=== PATIENT | female | born 1945 ===

== ENCOUNTER 2020-10-10 09:32 | Inpatient (IN) | payer MEDICARE, OTHER ==
[~2020-10-10] VITALS: Ht 162.6 cm; Wt 33.6 kg
[2020-10-10] MEDS ORDERED: LISI10TA16 PO (10:52)
[2020-10-10] MEDS ORDERED: BIMA2.5D EACHEYE (10:52)
[2020-10-10] MEDS ORDERED: SERT50TA PO (10:52)
[2020-10-10] MEDS ORDERED: DICL20GE TP (10:52)
[2020-10-10] MEDS ORDERED: DULO60CA6 PO (10:52)
[2020-10-10] MEDS ORDERED: SIMV20TA PO (10:52)
[2020-10-10] MEDS ORDERED: OMEP20TA63 PO (10:52)
[2020-10-10] MEDS ORDERED: NAPR-683 PO (10:52)
[2020-10-10] MEDS ORDERED: DIAZ2TAB PO (10:52)
[2020-10-10] MEDS ORDERED: SENN8.8S13 PO (10:52)
[2020-10-10] MEDS ORDERED: BRIM5DRO2 EACHEYE (10:52)
[2020-10-10] MEDS ORDERED: CALC11776 PO (10:52)
[2020-10-10] MEDS ORDERED: HYDR12.58 PO (10:52)
[2020-10-10] MEDS ORDERED: MIRT-37 PO (10:52)
[2020-10-10] MEDS ORDERED: DOCU-109 PO (10:52)
[2020-10-10] MEDS ORDERED: LEVO50TA5 PO (10:55)
[2020-10-10 13:10] VITALS: BP 156/89
[2020-10-10] MEDS ORDERED: CALCIUM CARBONATE 470 MG PO PRN (14:30)
[2020-10-10] MEDS ORDERED: NON FORMULARY ITEM (Omeprazole Magnesium (Prilosec Otc) 1 TAB) PO PRN (14:30)
[2020-10-10] MEDS ORDERED: diazePAM 2 MG TABLET. PO PRN (14:30)
[2020-10-10] MEDS ORDERED: SENN25TA PO (14:30)
[2020-10-10] MEDS ORDERED: MAG HYDROX/AL HYDROX/SIMETH 30 ML ORAL.SUSP PO PRN (14:45)
[2020-10-10] MEDS ORDERED: ACETAMINOPHEN 325 MG TABLET PO PRN (14:45)
[2020-10-10] MEDS ORDERED: MAGNESIUM HYDROXIDE 2,400 MG/30 ML ORAL.SUSP. PO PRN (14:45)
[2020-10-10] MEDS ORDERED: METHYL SALICYLATE/MENTHOL TOPICAL OINTMENT 57GM TUBE. TP PRN (14:45)
[2020-10-10] MEDS ORDERED: CALCIUM CARBONATE 500 MG TAB.CHEW PO PRN (15:00)
[2020-10-10] MEDS ORDERED: PANTOPRAZOLE 40 MG TABLET. PO PRN (15:00)
--- NOTE | 2020-10-10 15:05 | NUR ---
Admission Note with Justification for Admission to [facility] Patient admitted to [facility] for protective oversight for emergency stabilization of acute psychiatric crisis. Pt admitted from: Home Mode of arrival: POV Accompanied By: Family Precipitating behaviors that initiated intake and admission: anxiety, depression, poor oral intake/weight loss, hopeless Description of failure of out patient attempts at stabilization in previous setting list behavior and medication trials: out patient psychiatry, medications Behaviors and assessment findings upon admission: anxious, cooperative, withdrawn, Plan: Admit for protective oversight for adjustment and stabilization of medications, behaviors and mood. Intense treatment regimen including groups, medication adjustments, therapy, consistent regimen for ADL's, self care, and sleep hygiene. Daily monitoring by Inpatient staff, Psychiatry, and Medical Physician. admitted to room 218 at 1315 accomp by her daughter who dropped her off. oriented to room, unit and routines.
--- NOTE | 2020-10-10 15:33 | NUR ---
Patient has been provided with Practical Counseling for tobacco cessation. It included a face to face interaction and the following was discussed: Recognizing danger situations, Developing coping skills,Basic cessation information. Will follow for discharge needs and discharge planning.
[2020-10-10 15:37] VITALS: BP 101/64
[2020-10-10 16:39] LABS: BASO % 1 % (0-3); EOS # 0.2 x10^3/uL (0.0-0.7); EOS % 4 % (0-3); HEMATOCRIT 44.7 % (36.0-47.0); HEMOGLOBIN 15.1 g/dL (12.0-15.5); LYMPH # 0.7 x10^3/uL (1.0-4.8); LYMPH % 14 % (24-48); MEAN CORPUSCULAR HEMOGLOBIN 33 pg (25-35); MEAN CORPUSCULAR HGB CONC 34 g/dL (31-37); MEAN CORPUSCULAR VOLUME 98 fL (79-100); MONO # 0.5 x10^3/uL (0.0-1.1); MONO % 10 % (0-9); NEUT # 3.7 x10^3uL (1.8-7.7); NEUT % 72 % (31-73); PLATELET COUNT 176 x10^3/uL (140-400); RED BLOOD COUNT 4.55 x10^6/uL (3.50-5.40); RED CELL DISTRIBUTION WIDTH 13.5 % (11.5-14.5); WHITE BLOOD COUNT 5.2 x10^3/uL (4.0-11.0)
[2020-10-10 16:48] LABS: ALBUMIN/GLOBULIN RATIO 0.9 (1.0-1.7); CALCIUM 8.2 mg/dL (8.5-10.1); CREATININE 0.6 mg/dL (0.6-1.0); GFR 96.9; POTASSIUM 3.4 mmol/L (3.5-5.1); TOTAL BILIRUBIN 0.3 mg/dL (0.2-1.0); TOTAL PROTEIN 6.3 g/dL (6.4-8.2)
[2020-10-10] MEDS: BRIMONIDINE 0.2% OPHTH SOLUTION 5ML BOTTLE. OU SCH (20:46)
[2020-10-10] MEDS: LATANOPROST 0.005% OPHTH SOLUTION 2.5ML BOTTLE. OU SCH (20:47)
[2020-10-10] MEDS: TIMOLOL 0.5% OPHTH SOLUTION 5ML BOTTLE. OU SCH (20:47)
[2020-10-10] MEDS: MIRTAZAPINE 15 MG TABLET PO SCH (20:47)
[2020-10-10] MEDS ORDERED: BRIMONIDINE TARTRATE EACHEYE SCH (21:00)
[2020-10-10] MEDS ORDERED: SIMVASTATIN 20 MG TABLET PO SCH (21:00)
[2020-10-10] MEDS ORDERED: TIMOLOL EACHEYE SCH (21:00)
--- NOTE | 2020-10-10 22:03 | PDOC ---
Exam Note: Nathan Note: Please also refer to the separate dictated note~for this date of service dictated separately.~Patient seen individually. Discussed the patient with Nursing staff reviewed the chart.~Reviewed interim history and current functioning. Reviewed vital signs,~Labs/ Radiology~and current medications noted below. Continue current treatment with the changes noted in the dictated addendum note Assessment: Vital Signs/I&O: Vital Signs Date Time Temp Pulse Resp B/P (MAP) Pulse Ox O2 Delivery O2 Flow Rate FiO2 10/10/20 15:37 97.9 82 16 101/64 (76) 90 Labs: Laboratory Tests Test 10/10/20 16:19 White Blood Count 5.2 x10^3/uL (4.0-11.0) Red Blood Count 4.55 x10^6/uL (3.50-5.40) Hemoglobin 15.1 g/dL (12.0-15.5) Hematocrit 44.7 % (36.0-47.0) Mean Corpuscular Volume 98 fL (79-100) Mean Corpuscular Hemoglobin 33 pg (25-35) Mean Corpuscular Hemoglobin Concent 34 g/dL (31-37) Red Cell Distribution Width 13.5 % (11.5-14.5) Platelet Count 176 x10^3/uL (140-400) Neutrophils (%) (Auto) 72 % (31-73) Lymphocytes (%) (Auto) 14 % (24-48) L Monocytes (%) (Auto) 10 % (0-9) H Eosinophils (%) (Auto) 4 % (0-3) H Basophils (%) (Auto) 1 % (0-3) Neutrophils # (Auto) 3.7 x10^3uL (1.8-7.7) Lymphocytes # (Auto) 0.7 x10^3/uL (1.0-4.8) L Monocytes # (Auto) 0.5 x10^3/uL (0.0-1.1) Eosinophils # (Auto) 0.2 x10^3/uL (0.0-0.7) Basophils # (Auto) 0.0 x10^3/uL (0.0-0.2) D-Dimer (Shira) 0.33 mg/L (0.00-0.50) Sodium Level 141 mmol/L (136-145) Potassium Level 3.4 mmol/L (3.5-5.1) L Chloride Level 100 mmol/L (98-107) Carbon Dioxide Level 39 mmol/L (21-32) H Anion Gap 2 (6-14) L Blood Urea Nitrogen 18 mg/dL (7-20) Creatinine 0.6 mg/dL (0.6-1.0) Estimated GFR (Cockcroft-Gault) 96.9 BUN/Creatinine Ratio 30 (6-20) H Glucose Level 222 mg/dL (70-99) H Calcium Level 8.2 mg/dL (8.5-10.1) L Magnesium Level 2.0 mg/dL (1.8-2.4) Total Bilirubin 0.3 mg/dL (0.2-1.0) Aspartate Amino Transferase (AST) 22 U/L (15-37) Alanine Aminotransferase (ALT) 31 U/L (14-59) Alkaline Phosphatase 85 U/L (46-116) Total Protein 6.3 g/dL (6.4-8.2) L Albumin 3.0 g/dL (3.4-5.0) L Albumin/Globulin Ratio 0.9 (1.0-1.7) L Current Medications: Meds: Current Medications Medications (Trade) Dose Ordered Sig/Bebe Route PRN Reason Start Time Stop Time Status Last Admin Dose Admin Mirtazapine (Remeron) 15 mg QHS PO 10/10/20 21:00 10/10/20 20:47 Simvastatin (Zocor) 20 mg QHS PO 10/10/20 21:00 10/10/20 20:47 I have reviewed the current psychotropics carefully including drug interactions. Risk benefit ratio favors no change other than as noted in my dictated progress note. Diagnosis: Problems: (1) MDD (major depressive disorder) CHRISTOPHE SALAS MD Oct 10, 2020 22:03
[2020-10-10 22:38] LABS: BILIRUBIN,URINE NEG (NEG); CLARITY,URINE HAZY; COLOR,URINE YELLOW; GLUCOSE,URINE NEG (NEG)
[2020-10-10 22:39] LABS: BACTERIA,URINE FEW /HPF (0-FEW); NITRITE,URINE NEG (NEG); SQUAMOUS EPITHELIAL CELL,UR FEW /LPF; UROBILINOGEN,URINE 0.2 mg/dL (0.2 mg/dL); WBC,URINE 0 /HPF (0-4)
--- NOTE | 2020-10-10 23:02 | NUR ---
Pt located in the hallway by the [facility] sitting calmly crocheting. Pt A/O x4. Pt denies anxiety at this time. Pt states she is not depressed, just "really tired." Pt compliant with whole medications and ate ice cream for an evening snack.
[2020-10-11] MEDS: LEVOTHYROXINE 50 MCG TABLET PO SCH ×2 (05:32→07:30)
[2020-10-11 06:08] VITALS: BP 125/78
[2020-10-11] MEDS ORDERED: LEVOTHYROXINE 50 MCG TABLET PO SCH (07:30)
[2020-10-11] MEDS: DULoxetine HCL 60 MG CAPSULE.DR PO SCH (08:46)
[2020-10-11] MEDS ORDERED: LISINOPRIL 10 MG TABLET PO SCH (09:00)
[2020-10-11] MEDS ORDERED: NON FORMULARY ITEM (Hydrochlorothiazide (Hydrochlorothiazide Tablet) 12.5 MG) PO SCH (09:00)
[2020-10-11] MEDS ORDERED: SERTRALINE 50 MG TABLET. PO SCH (09:00)
[2020-10-11] MEDS ORDERED: hydroCHLOROthiazide 12.5 MG CAPSULE PO SCH (09:00)
[2020-10-11] MEDS: TIMOLOL 0.5% OPHTH SOLUTION 5ML BOTTLE. OU SCH ×2 (09:00→20:31)
[2020-10-11] MEDS: BRIMONIDINE 0.2% OPHTH SOLUTION 5ML BOTTLE. OU SCH ×2 (09:13→20:31)
--- NOTE | 2020-10-11 11:26 | CONS ---
DATE OF CONSULTATION: 10/11/2020 ATTENDING PHYSICIAN: Dr. Salas. We are asked to see the patient for medical consultation. HISTORY OF PRESENT ILLNESS: The patient is a 75-year-old female from [place], [place]. She did a self-check in, and she is fairly alert. Her concern is a significant weight loss down to 82 pounds. She states that since she has been on her antidepressant medication, her appetite has been quite poor and she is not eating as much. I did review her medications. She is not on any nonsteroidal agents. She states that she was never heavy. She had weighed somewhere above 100 pounds. She is down to 82 pounds. She denied any chest pain, palpitations, diarrhea. I did review her medicines. ALLERGIES: SHE HAS ALLERGIES TO PENICILLIN, CEPHALEXIN. EXACT REACTION IS UNCLEAR. MEDICATIONS: Currently, she is taking Lumigan eyedrops, timolol eyedrops, calcium carbonate, Valium p.r.n., Cymbalta, hydrochlorothiazide, Synthroid, lisinopril, Remeron, omeprazole, senna, Zoloft, and Zocor. SOCIAL HISTORY: She is a nonsmoker and nondrinker. PAST MEDICAL HISTORY: Significant for essential hypertension, major depression with anxiety, hyperlipidemia and gastroesophageal reflux disease along with osteoporosis. FAMILY HISTORY: Noncontributory. REVIEW OF SYSTEMS: The patient is . Her 9 years ago. She has had depression. She has a daughter that lives in [place]. She denied any nausea, vomiting or diarrhea, just simply no appetite. She was born in [place] originally, she met her , the [employer] stationed there, they moved here. She is a naturalized citizen. All other systems reviewed and turned to be negative. PHYSICAL EXAMINATION: GENERAL: When I saw her, this is a very pleasant female who is thin and cachectic. VITAL SIGNS: Initial vital signs showed a blood pressure of 125/78, pulse is 80 and regular. She was afebrile, oxygen saturation 92% on room air. HEENT: Head is without trauma. Pupils are reactive. Sclerae nonicteric. Oropharynx clear. NECK: Supple, no bruits. LUNGS: Otherwise clear. CARDIOVASCULAR: Regular heart tones. No gallop. ABDOMEN: Soft. No guarding. EXTREMITIES: Without edema. NEUROLOGIC: Focally intact. Speech is fluent. SKIN: Warm and dry. PERTINENT LABORATORY STUDIES: Her hemoglobin is 15.1 g/dL, white count 5200. Sodium 141 mEq, potassium 3.4. Nonfasting blood sugar was 222. Her urinalysis was clean and free of glucose. Serology for coronavirus is negative. ASSESSMENT: 1. This 75-year-old female checked herself in with cachexia. 2. Decreased appetite related to medications. 3. Hypertension, currently normotensive. 4. Degenerative arthritis. 5. Anxiety that is significant and associated with her depression. RECOMMENDATIONS: 1. I have reviewed her medicine. We ought to simplify. She does not need her hydrochlorothiazide. I will take the liberty of stopping this. In addition, I see that she had been on 2 SSRIs. Whether or not she was taking both at the same time or subsequently is unclear. She does not have any indication. Therefore, I would recommend that we stop the Zoloft and continue the Cymbalta. She may have hyperserotonin syndrome. 2. Simplification of her meds. I will stop her calcium and other p.r.n. meds that are not necessary. I do not think she needs a senna either. In addition, cholesterol is not a problem. I will hold her Zocor and I will also take the liberty of stopping her lisinopril and see if her blood pressure is active. I do not think she needs that right now. Thank you again for asking me to see this patient for medical consultation. I should gladly follow along closely during her inpatient care. In addition, I do not know whether the admission blood sugar was accurate. I would recommend getting a hemoglobin A1c to make sure she does not have diabetes. MARTHA/ELLY/DEVAUGHN DR: Moriah TID: [id number] CC: CHRISTOPHE SALAS MD
[2020-10-11] MEDS: NICOTINE 21MG PATCH. TD SCH (11:30)
[2020-10-11 11:41] LABS: THYROID STIM HORMONE (TSH) 1.037 uIU/mL (0.358-3.740)
--- NOTE | 2020-10-11 11:45 | RAD ---
CT HEAD/BRAIN WO Date: 10/11/2020 10:14 AM Clinical Indication: change in mental status / Spl. Instructions: / History: Comparison: None. Technique: 5 mm axial tomographic images were obtained of the head without contrast. These were view ed on brain and bone windows. One or more of the following dose reduction techniques were utilized: A utomated exposure control (AEC), Adjustment of mA and/or kV according to patient size, Use of iterati ve reconstruction technique such as ASiR, CT scan done according to ALARA and image gently/image ying ly Findings: Mild generalized cerebral and cerebellar volume loss. Mild nonspecific periventricular hypoattenuatio n, most commonly seen with chronic small vessel ischemic disease. Calcified atherosclerosis of the bi lateral cavernous and paraclinoid internal carotid arteries and intracranial vertebral arteries. No intra- or extra-axial mass or fluid collection. No acute hemorrhage. The ventricles are normal in size, shape, and morphology. The fermin-white matter junction is normal. The subarachnoid cisterns are patent. The visualized paranasal sinuses are normal. The visualized portions of the orbits and globes are no rmal. The mastoid air cells are clear. The furniture painter topogram shows no lytic lesion or fracture. Impression: No acute intracranial process. Mild cerebral volume loss. Mild chronic small vessel ischemic disease. Electronically signed by: Stone Marrero MD (10/11/2020 11:42 AM) [id number]
--- NOTE | 2020-10-11 14:22 | NUR ---
Nursing note: Patient in hallway for morning medication & assessment, meds taken whole. She is A/O X4, denies anxiety at this time. Patient stated she is here for anxiety, depression, & loss of appetite. She refused her nicotine patch, voiced she is doing good. Patient is currently in her room resting. Will continue to monitor.
[2020-10-11 15:57] VITALS: BP 111/69
--- NOTE | 2020-10-11 19:37 | HP ---
ADMIT DATE: 10/10/2020 PSYCHIATRIC ADMISSION HISTORY/EVALUATION This is a late entry, date of service on 10/10/2020, covers the elements not covered in my initial note on 10/10/2020. IDENTIFYING DATA: The patient is a 75-year-old female referred by Dr. Levine, her psychiatrist and Dr. El at [facility] in [place], [place] on account of worsening symptoms of depression, poor oral intake with weight dropping down to 82 pounds. Reportedly, she has told her family that she plans to starve herself. She has had increasing anxiety, nervous all the time, feeling hopeless, helpless, worthless and has failed outpatient psychiatric interventions with Dr. Levine. Dr. Levine is currently deployed overseas. Dr Smith initiated the referral to us. CHIEF COMPLAINT: "I don't feel hungry. I am anxious all the time. I am depressed." HISTORY OF PRESENT ILLNESS: The patient has a history of prolonged duration of major depressive disorder and anxiety disorder. She is unsure what part this started in the first place and there is no family history either. She admits to feeling hopeless, helpless, worthless, drop in appetite, weight loss as noted. Suicidal ideation, which she minimizes at this time. No clear psychotic symptoms or homicidal ideation. PAST PSYCHIATRIC HISTORY: As above. MEDICAL HISTORY: Hypothyroidism, hyperlipidemia, GERD, hypertension, chronic constipation, emphysema, osteoporosis, insomnia, status post cataract surgery and tonsillectomy. ALLERGIES: PENICILLIN AND KEFLEX. DIET: Regular. ACCU-CHEKS: None. CODE STATUS: Full code. Takes medications whole, ambulates up ad [place]. CURRENT PSYCHOTROPICS: Remeron 15 mg at bedtime, Zoloft 150 mg a day, Cymbalta 60 mg a day, Valium 2 mg q. 12 hours p.r.n. anxiety, which she does not take this because of tiredness, even though it helped her anxiety significantly. FAMILY HISTORY: Noncontributory. SOCIAL HISTORY: No alcohol, drug abuse, physical, sexual or elder abuse history is noted. She is not known to be a perpetrator. She used to work at the [employer] and [employer] in the past and is originally from [place]. She is a smoker. The patient states she has been unable to go to the grocery store due to anxiety and her family assist with this, it is that if someone with her, she is __ able to get into the store, but not otherwise. REACTION TO HOSPITALIZATION: The patient accepting of it. ASSETS: Supportive family, stable living at home with family support. REVIEW OF SYSTEMS: Poor appetite. No CV, , pulmonary, eye system symptoms on review. MENTAL STATUS EXAM: The patient is reasonably oriented. Speech is coherent. Abstraction fair. Computation impaired. Language function intact. Attention span short. Mood and affect withdrawn, depressed, quite anxious, verbal. She denies current suicidal or homicidal ideation. Fairly attentive. IMPRESSION: Major depressive disorder, recurrent, anxiety disorder, unspecified. Rest as above. PLAN: Admit to geropsychiatry unit at [facility]. I will see the patient daily individually from a psychiatric standpoint, medical followup with Dr. Isaacs/Dr. Tsai. Continue the patient on her current psychotropics. Check CT head if not done recently. Continue current psychotropics. Consider stopping the Zoloft since she is on Cymbalta. Consider augmentation with Abilify post baseline assessment. We will make further determination post baseline assessment. ESTIMATED LENGTH OF STAY: 10-12 days. DISPOSITION PLANS: Discharge back home with outpatient followup post-stabilization. GUMARO DR: Sue TID: [id number]
[2020-10-11] MEDS: MIRTAZAPINE 15 MG TABLET PO SCH (20:31)
[2020-10-11] MEDS: LATANOPROST 0.005% OPHTH SOLUTION 2.5ML BOTTLE. OU SCH (20:31)
--- NOTE | 2020-10-11 22:21 | PDOC ---
Exam Note: Nathan Note: Please also refer to the separate dictated note~for this date of service dictated separately.~Patient seen individually. Discussed the patient with Nursing staff reviewed the chart.~Reviewed interim history and current functioning. Reviewed vital signs,~Labs/ Radiology~and current medications noted below. Continue current treatment with the changes noted in the dictated addendum note Assessment: Vital Signs/I&O: Vital Signs Date Time Temp Pulse Resp B/P (MAP) Pulse Ox O2 Delivery O2 Flow Rate FiO2 10/11/20 15:57 97.3 92 18 111/69 (83) 93 I & O 10/10/20 10/10/20 10/11/20 15:00 23:00 07:00 Intake Total 60 ml 60 ml Balance 60 ml 60 ml Current Medications: Meds: Current Medications Medications (Trade) Dose Ordered Sig/Bebe Route PRN Reason Start Time Stop Time Status Last Admin Dose Admin Diazepam (Valium) 2 mg BID PRN PO ANXIETY 10/10/20 14:30 Duloxetine HCl (Cymbalta) 60 mg DAILY PO 10/11/20 09:00 10/11/20 08:46 Levothyroxine Sodium (Synthroid) 50 mcg DAILYAC PO 10/11/20 07:30 10/10/20 20:48 DC Lisinopril (Prinivil) 10 mg DAILY PO 10/11/20 09:00 10/11/20 08:47 DC Mirtazapine (Remeron) 15 mg QHS PO 10/10/20 21:00 10/11/20 20:31 Sertraline HCl (Zoloft) 150 mg DAILY PO 10/11/20 09:00 10/11/20 08:47 DC Simvastatin (Zocor) 20 mg QHS PO 10/10/20 21:00 10/11/20 08:47 DC 10/10/20 20:47 Latanoprost (Xalatan) 1 drop QHS OU 10/10/20 21:00 10/11/20 20:31 Non-Formulary Medication (Brimonidine Tartrate/Timolol (Combigan Eye Drops)) 1 drop BID EACHEYE 10/10/20 21:00 UNV Non-Formulary Medication (Calcium Carbonate (Tums Ultra Strength)) 470 mg TIDPCHC PRN PO HEARTBURN / GAS 10/10/20 14:30 UNV Non-Formulary Medication (Hydrochlorothiazide (Hydrochlorothiazide Tablet)) 12.5 mg DAILY PO 10/11/20 09:00 UNV Non-Formulary Medication (Omeprazole Magnesium (Prilosec Otc)) 1 tab DAILY PRN PO HEARTBURN / GAS 10/10/20 14:30 UNV Sennosides (Senna) 25.8 mg Q3DAYS PO 10/13/20 09:00 10/11/20 08:47 DC Acetaminophen (Tylenol) 650 mg PRN Q6HRS PRN PO MILD PAIN / TEMP > 100.3'F 10/10/20 14:45 Multi-Ingredient Ointment (Analgesic [place]) 1 lillian PRN QID PRN TP MUSCLE PAIN 10/10/20 14:45 Al Hydroxide/Mg Hydroxide (Mylanta Plus Xs) 15 ml PRN AFTMEALHC PRN PO DYSPEPSIA 10/10/20 14:45 Magnesium Hydroxide (Milk Of Magnesia) 2,400 mg PRN QHS PRN PO CONSTIPATION 10/10/20 14:45 Hydrochlorothiazide (Microzide) 12.5 mg DAILY PO 10/11/20 09:00 10/11/20 08:47 DC Calcium Carbonate/ Glycine (Tums) 500 mg TIDPCHC PRN PO HEARTBURN / GAS 10/10/20 15:00 Brimonidine Tartrate (Alphagan) 1 drop BID OU 10/10/20 21:00 10/11/20 20:31 Timolol Maleate (Timoptic 0.5% [facility]) 1 drop BID OU 10/10/20 21:00 10/11/20 20:31 Pantoprazole Sodium (Protonix) 40 mg DAILY PRN PO HEARTBURN / GAS 10/10/20 15:00 Levothyroxine Sodium (Synthroid) 50 mcg DAILYAC PO 10/11/20 06:00 10/11/20 05:32 Nicotine (Nicoderm Cq 21mg Patch) 1 patch DAILY TD 10/11/20 11:30 Aripiprazole (Abilify) 2.5 mg DAILY PO 10/12/20 09:00 Current Medications Medications (Trade) Dose Ordered Sig/Bebe Route PRN Reason Start Time Stop Time Status Last Admin Dose Admin Duloxetine HCl (Cymbalta) 60 mg DAILY PO 10/11/20 09:00 10/11/20 08:46 Levothyroxine Sodium (Synthroid) 50 mcg DAILYAC PO 10/11/20 06:00 10/11/20 05:32 I have reviewed the current psychotropics carefully including drug interactions. Risk benefit ratio favors no change other than as noted in my dictated progress note. Diagnosis: Problems: (1) Major depressive disorder, recurrent episode (2) Anxiety disorder, unspecified CHRISTOPHE SALAS MD Oct 11, 2020 22:21
--- NOTE | 2020-10-11 22:39 | NUR ---
Pt located in her room this evening. Pt denies anxiety/ depression. A/O x4. Pt compliant with whole medications and stated that she felt better after conversation with Dr. Seaman.
[2020-10-11 23:09] LABS: THYROXINE 7.3 ug/dL (4.5-12.0)
[2020-10-12 01:09] LABS: HEMOGLOBIN A1C 6.5 % (4.8-5.6)
[2020-10-12] MEDS: LEVOTHYROXINE 50 MCG TABLET PO SCH (05:37)
[2020-10-12 06:01] VITALS: BP 136/78
--- NOTE | 2020-10-12 06:31 | EKG ---
[address] [address] Test Date: 2020-10-10 Test Time: 15:31:34 Pat Name: JACK WITT Department: Room: [address] [place] [address] Gender: F Records Analyst: : 1945 Requested By: CHRISTOPHE SALAS Order Number: [id number] Reading MD: Measurements Intervals [place] Rate: P: VA: QRS: QRSD: T: QT: QTc: Interpretive Statements
[2020-10-12] MEDS: DULoxetine HCL 60 MG CAPSULE.DR PO SCH (08:11)
[2020-10-12] MEDS: TIMOLOL 0.5% OPHTH SOLUTION 5ML BOTTLE. OU SCH ×2 (08:12→20:19)
[2020-10-12] MEDS: ARIPiprazole 5 MG TABLET PO SCH (08:12)
[2020-10-12] MEDS: BRIMONIDINE 0.2% OPHTH SOLUTION 5ML BOTTLE. OU SCH ×2 (08:12→20:19)
[2020-10-12] MEDS: NICOTINE 21MG PATCH. TD SCH (08:13)
--- NOTE | 2020-10-12 14:00 | NUR ---
ACTIVITY THERAPY ASSESSMENT Completed based on observation, notes and interview. Pt. was agreeable to speak with DIRECT MARKETING REPRESENTATIVE and martina along side her. The two talked about crocheting and Pt shared she enjoys making hats, blankets, etc for the Santos Levine children. She said counting and following patterns helps her anxious thinking. She was aware and oriented, reported feeling good here but was anxious about panic attacks continuing when she returns home. They discussed the structure on the unit a little more. Pt. and DIRECT MARKETING REPRESENTATIVE talked about her family, friends, judaism, and neighbors. Pt. tends to keep to herself on the unit, she was open to journalling and receiving Bible verses about fear and anxiety. DIRECT MARKETING REPRESENTATIVE gave Pt. a folder with paper, felt tip pen, Bible verse print out, list of journal prompts, and a small word search puzzle. Pt. smiled when she saw the word search book, explained she does that at home while she is eating as it helps her to focus. Initial goal aimed to increase leisure education and socialization: Pt will participate in at least three individual or Activity Therapy groups per week.
--- NOTE | 2020-10-12 14:33 | NUR ---
Nursing note: Patient in hallway for morning medication & assessment, meds taken whole. She is A/O X4, denies anxiety or depression at this time. Patient stated she is here for anxiety, depression, & loss of appetite. She refused her nicotine patch, voiced she is doing good. Patient is currently in her room crocheting with staff. Will continue to monitor.
[2020-10-12 16:08] VITALS: BP 96/60
[2020-10-12] MEDS: MIRTAZAPINE 15 MG TABLET PO SCH (20:19)
[2020-10-12] MEDS: LATANOPROST 0.005% OPHTH SOLUTION 2.5ML BOTTLE. OU SCH (20:19)
[2020-10-12] MEDS ORDERED: SENNOSIDES 8.6 MG TABLET PO PRN (20:30)
--- NOTE | 2020-10-12 22:02 | NUR ---
Pt sitting calmly in her room this evening. Pt denies anxiety. Pt has flat affect and states that she is tired. Compliant with whole medications.
--- NOTE | 2020-10-12 22:08 | PDOC ---
Exam Note: Nathan Note: Please also refer to the separate dictated note~for this date of service dictated separately.~Patient seen individually. Discussed the patient with Nursing staff reviewed the chart.~Reviewed interim history and current functioning. Reviewed vital signs,~Labs/ Radiology~and current medications noted below. Continue current treatment with the changes noted in the dictated addendum note Assessment: Vital Signs/I&O: Vital Signs Date Time Temp Pulse Resp B/P (MAP) Pulse Ox O2 Delivery O2 Flow Rate FiO2 10/12/20 16:08 98.0 76 16 96/60 (72) 93 I & O 10/11/20 10/11/20 10/12/20 15:00 23:00 07:00 Intake Total 1080 ml 600 ml Balance 1080 ml 600 ml Current Medications: Meds: Current Medications Medications (Trade) Dose Ordered Sig/Bebe Route PRN Reason Start Time Stop Time Status Last Admin Dose Admin Diazepam (Valium) 2 mg BID PRN PO ANXIETY 10/10/20 14:30 Duloxetine HCl (Cymbalta) 60 mg DAILY PO 10/11/20 09:00 10/12/20 08:11 Levothyroxine Sodium (Synthroid) 50 mcg DAILYAC PO 10/11/20 07:30 10/10/20 20:48 DC Lisinopril (Prinivil) 10 mg DAILY PO 10/11/20 09:00 10/11/20 08:47 DC Mirtazapine (Remeron) 15 mg QHS PO 10/10/20 21:00 10/12/20 20:19 Sertraline HCl (Zoloft) 150 mg DAILY PO 10/11/20 09:00 10/11/20 08:47 DC Simvastatin (Zocor) 20 mg QHS PO 10/10/20 21:00 10/11/20 08:47 DC 10/10/20 20:47 Latanoprost (Xalatan) 1 drop QHS OU 10/10/20 21:00 10/12/20 20:19 Non-Formulary Medication (Brimonidine Tartrate/Timolol (Combigan Eye Drops)) 1 drop BID EACHEYE 10/10/20 21:00 UNV Non-Formulary Medication (Calcium Carbonate (Tums Ultra Strength)) 470 mg TIDPCHC PRN PO HEARTBURN / GAS 10/10/20 14:30 UNV Non-Formulary Medication (Hydrochlorothiazide (Hydrochlorothiazide Tablet)) 12.5 mg DAILY PO 10/11/20 09:00 UNV Non-Formulary Medication (Omeprazole Magnesium (Prilosec Otc)) 1 tab DAILY PRN PO HEARTBURN / GAS 10/10/20 14:30 UNV Sennosides (Senna) 25.8 mg Q3DAYS PO 10/13/20 09:00 10/11/20 08:47 DC Acetaminophen (Tylenol) 650 mg PRN Q6HRS PRN PO MILD PAIN / TEMP > 100.3'F 10/10/20 14:45 Multi-Ingredient Ointment (Analgesic [place]) 1 lillian PRN QID PRN TP MUSCLE PAIN 10/10/20 14:45 Al Hydroxide/Mg Hydroxide (Mylanta Plus Xs) 15 ml PRN AFTMEALHC PRN PO DYSPEPSIA 10/10/20 14:45 Magnesium Hydroxide (Milk Of Magnesia) 2,400 mg PRN QHS PRN PO CONSTIPATION 10/10/20 14:45 Hydrochlorothiazide (Microzide) 12.5 mg DAILY PO 10/11/20 09:00 10/11/20 08:47 DC Calcium Carbonate/ Glycine (Tums) 500 mg TIDPCHC PRN PO HEARTBURN / GAS 10/10/20 15:00 Brimonidine Tartrate (Alphagan) 1 drop BID OU 10/10/20 21:00 10/12/20 20:19 Timolol Maleate (Timoptic 0.5% [facility]) 1 drop BID OU 10/10/20 21:00 10/12/20 20:19 Pantoprazole Sodium (Protonix) 40 mg DAILY PRN PO HEARTBURN / GAS 10/10/20 15:00 Levothyroxine Sodium (Synthroid) 50 mcg DAILYAC PO 10/11/20 06:00 10/12/20 05:37 Nicotine (Nicoderm Cq 21mg Patch) 1 patch DAILY TD 10/11/20 11:30 Aripiprazole (Abilify) 2.5 mg DAILY PO 10/12/20 09:00 10/12/20 08:12 Sennosides (Senna) 17.2 mg PRN BID PRN PO CONSTIPATION 10/12/20 20:30 9/6/21 20:39 Current Medications Medications (Trade) Dose Ordered Sig/Bebe Route PRN Reason Start Time Stop Time Status Last Admin Dose Admin Aripiprazole (Abilify) 2.5 mg DAILY PO 10/12/20 09:00 10/12/20 08:12 Sennosides (Senna) 17.2 mg PRN BID PRN PO CONSTIPATION 10/12/20 20:30 10/12/20 20:39 I have reviewed the current psychotropics carefully including drug interactions. Risk benefit ratio favors no change other than as noted in my dictated progress note. Diagnosis: Problems: (1) MDD (major depressive disorder) (2) Major depressive disorder, recurrent episode (3) Anxiety disorder, unspecified CHRISTOPHE SALAS MD Oct 12, 2020 22:08
[2020-10-13] MEDS: LEVOTHYROXINE 50 MCG TABLET PO SCH (05:39)
[2020-10-13 06:00] VITALS: BP 138/78
[2020-10-13] MEDS: TIMOLOL 0.5% OPHTH SOLUTION 5ML BOTTLE. OU SCH ×2 (08:14→21:20)
[2020-10-13] MEDS: BRIMONIDINE 0.2% OPHTH SOLUTION 5ML BOTTLE. OU SCH ×2 (08:14→21:20)
[2020-10-13] MEDS: ARIPiprazole 5 MG TABLET PO SCH (08:15)
[2020-10-13] MEDS: DULoxetine HCL 60 MG CAPSULE.DR PO SCH (08:15)
--- NOTE | 2020-10-13 08:28 | PDOC ---
Exam Note: Nathan Note: This note is a late entry for 10/11/2020 covers elements not covered in my initial note. Subjective: The patient was seen individually in the evening of 10/11/2020 with Melyssa MCCANN, discussed and reviewed the chart. The patient slept 7 hours previous night. Reportedly the patient has done better with improved anxiety and depression but patient feels and I agree much of this is due to the structured environment on the unit. Appetite is fair and she has been talking about doing martina as an activity to distract from her anxiety. Review of Systems: No CV, , pulmonary, eye, ENT system symptoms on review. Mental Status Exam: The patient is reasonably oriented. Speech coherent. Abst raction fair. Computation impaired. Language function intact. Mood and affect remains depressed. No suicidal or homicidal ideation. Laboratory Data: Reviewed. Impression: Major depressive disorder, recurrent, severe. Anxiety disorder unspecified. Plan: Continue current psychotropics. We will go ahead and stop the Zoloft. Maintain Cymbalta 60 mg a day and augment this with Abilify 2.5 mg a day. Maintain Remeron and rest of the psychotropics unchanged. Assessment: Vital Signs/I&O: Vital Signs Date Time Temp Pulse Resp B/P (MAP) Pulse Ox O2 Delivery O2 Flow Rate FiO2 10/13/20 06:00 97.6 69 18 138/78 (98) 92 I & O 10/12/20 10/12/20 10/13/20 15:00 23:00 07:00 Intake Total 720 ml 480 ml Balance 720 ml 480 ml Current Medications: Meds: Current Medications Medications (Trade) Dose Ordered Sig/Bebe Route PRN Reason Start Time Stop Time Status Last Admin Dose Admin Diazepam (Valium) 2 mg BID PRN PO ANXIETY 10/10/20 14:30 Duloxetine HCl (Cymbalta) 60 mg DAILY PO 10/11/20 09:00 10/13/20 08:15 Levothyroxine Sodium (Synthroid) 50 mcg DAILYAC PO 10/11/20 07:30 10/10/20 20:48 DC Lisinopril (Prinivil) 10 mg DAILY PO 10/11/20 09:00 10/11/20 08:47 DC Mirtazapine (Remeron) 15 mg QHS PO 10/10/20 21:00 10/12/20 20:19 Sertraline HCl (Zoloft) 150 mg DAILY PO 10/11/20 09:00 10/11/20 08:47 DC Simvastatin (Zocor) 20 mg QHS PO 10/10/20 21:00 10/11/20 08:47 DC 10/10/20 20:47 Latanoprost (Xalatan) 1 drop QHS OU 10/10/20 21:00 10/12/20 20:19 Non-Formulary Medication (Brimonidine Tartrate/Timolol (Combigan Eye Drops)) 1 drop BID EACHEYE 10/10/20 21:00 UNV Non-Formulary Medication (Calcium Carbonate (Tums Ultra Strength)) 470 mg TIDPCHC PRN PO HEARTBURN / GAS 10/10/20 14:30 UNV Non-Formulary Medication (Hydrochlorothiazide (Hydrochlorothiazide Tablet)) 12.5 mg DAILY PO 10/11/20 09:00 UNV Non-Formulary Medication (Omeprazole Magnesium (Prilosec Otc)) 1 tab DAILY PRN PO HEARTBURN / GAS 10/10/20 14:30 UNV Sennosides (Senna) 25.8 mg Q3DAYS PO 10/13/20 09:00 10/11/20 08:47 DC Acetaminophen (Tylenol) 650 mg PRN Q6HRS PRN PO MILD PAIN / TEMP > 100.3'F 10/10/20 14:45 Multi-Ingredient Ointment (Analgesic [place]) 1 lillian PRN QID PRN TP MUSCLE PAIN 10/10/20 14:45 Al Hydroxide/Mg Hydroxide (Mylanta Plus Xs) 15 ml PRN AFTMEALHC PRN PO DYSPEPSIA 10/10/20 14:45 Magnesium Hydroxide (Milk Of Magnesia) 2,400 mg PRN QHS PRN PO CONSTIPATION 10/10/20 14:45 Hydrochlorothiazide (Microzide) 12.5 mg DAILY PO 10/11/20 09:00 10/11/20 08:47 DC Calcium Carbonate/ Glycine (Tums) 500 mg TIDPCHC PRN PO HEARTBURN / GAS 10/10/20 15:00 Brimonidine Tartrate (Alphagan) 1 drop BID OU 10/10/20 21:00 10/13/20 08:14 Timolol Maleate (Timoptic 0.5% Ophth) 1 drop BID OU 10/10/20 21:00 10/13/20 08:14 Pantoprazole Sodium (Protonix) 40 mg DAILY PRN PO HEARTBURN / GAS 10/10/20 15:00 Levothyroxine Sodium (Synthroid) 50 mcg DAILYAC PO 10/11/20 06:00 10/13/20 05:39 Nicotine (Nicoderm Cq 21mg Patch) 1 patch DAILY TD 10/11/20 11:30 Aripiprazole (Abilify) 2.5 mg DAILY PO 10/12/20 09:00 10/13/20 08:15 Sennosides (Senna) 17.2 mg PRN BID PRN PO CONSTIPATION 10/12/20 20:30 10/12/20 20:39 Current Medications Medications (Trade) Dose Ordered Sig/Bebe Route PRN Reason Start Time Stop Time Status Last Admin Dose Admin Aripiprazole (Abilify) 2.5 mg DAILY PO 10/12/20 09:00 10/13/20 08:15 Sennosides (Senna) 17.2 mg PRN BID PRN PO CONSTIPATION 10/12/20 20:30 10/12/20 20:39 I have reviewed the current psychotropics carefully including drug interactions. Risk benefit ratio favors no change other than as noted in my dictated progress note. Diagnosis: Problems: (1) MDD (major depressive disorder) (2) Major depressive disorder, recurrent episode (3) Anxiety disorder, unspecified CHRISTOPHE SALAS MD Oct 13, 2020 08:28
--- NOTE | 2020-10-13 08:44 | PDOC ---
Exam Note: Nathan Note: This note is a late entry for 10/12/2020 covers elements not covered in my initial note. Subjective: The patient was seen individually in the evening of 10/12/2020 with Melyssa MCCANN, discussed and reviewed the chart. The patient slept 5 hours previous night. She has been anxious, somewhat annoyed with other patients coming into her room. She has been doing some martina with the activity therapy staff which distracts and helps the anxiety. Review of Systems: No CV, , pulmonary, eye, ENT system symptoms on review. Mental Status Exam: The patient is reasonably oriented. Speech coherent. Abstraction fair. Computation impaired. Language function intact. Attention span short. Mood and affect is anxious, but improved. Laboratory Data: Reviewed. Impression: Major depressive disorder, recurrent, severe. Anxiety disorder unspecified. Plan: The patient states she had been thinking earlier in the day about the loss of her sister but states she did not get overwhelmed, anxious and depressed as a consequence of this as she would have done this typically in the past. We discussed the changes we made in her psychotropics and further adjustments as clinically indicated and continue rest unchanged. Assessment: Vital Signs/I&O: Vital Signs Date Time Temp Pulse Resp B/P (MAP) Pulse Ox O2 Delivery O2 Flow Rate FiO2 10/13/20 06:00 97.6 69 18 138/78 (98) 92 I & O 10/12/20 10/12/20 10/13/20 15:00 23:00 07:00 Intake Total 720 ml 480 ml Balance 720 ml 480 ml Current Medications: Meds: Current Medications Medications (Trade) Dose Ordered Sig/Bebe Route PRN Reason Start Time Stop Time Status Last Admin Dose Admin Diazepam (Valium) 2 mg BID PRN PO ANXIETY 10/10/20 14:30 Duloxetine HCl (Cymbalta) 60 mg DAILY PO 10/11/20 09:00 10/13/20 08:15 Levothyroxine Sodium (Synthroid) 50 mcg DAILYAC PO 10/11/20 07:30 10/10/20 20:48 DC Lisinopril (Prinivil) 10 mg DAILY PO 10/11/20 09:00 10/11/20 08:47 DC Mirtazapine (Remeron) 15 mg QHS PO 10/10/20 21:00 10/12/20 20:19 Sertraline HCl (Zoloft) 150 mg DAILY PO 10/11/20 09:00 10/11/20 08:47 DC Simvastatin (Zocor) 20 mg QHS PO 10/10/20 21:00 10/11/20 08:47 DC 10/10/20 20:47 Latanoprost (Xalatan) 1 drop QHS OU 10/10/20 21:00 10/12/20 20:19 Non-Formulary Medication (Brimonidine Tartrate/Timolol (Combigan Eye Drops)) 1 drop BID EACHEYE 10/10/20 21:00 UNV Non-Formulary Medication (Calcium Carbonate (Tums Ultra Strength)) 470 mg TIDPCHC PRN PO HEARTBURN / GAS 10/10/20 14:30 UNV Non-Formulary Medication (Hydrochlorothiazide (Hydrochlorothiazide Tablet)) 12.5 mg DAILY PO 10/11/20 09:00 UNV Non-Formulary Medication (Omeprazole Magnesium (Prilosec Otc)) 1 tab DAILY PRN PO HEARTBURN / GAS 10/10/20 14:30 UNV Sennosides (Senna) 25.8 mg Q3DAYS PO 10/13/20 09:00 10/11/20 08:47 DC Acetaminophen (Tylenol) 650 mg PRN Q6HRS PRN PO MILD PAIN / TEMP > 100.3'F 10/10/20 14:45 Multi-Ingredient Ointment (Analgesic [place]) 1 lillian PRN QID PRN TP MUSCLE PAIN 10/10/20 14:45 Al Hydroxide/Mg Hydroxide (Mylanta Plus Xs) 15 ml PRN AFTMEALHC PRN PO DYSPEPSIA 10/10/20 14:45 Magnesium Hydroxide (Milk Of Magnesia) 2,400 mg PRN QHS PRN PO CONSTIPATION 10/10/20 14:45 Hydrochlorothiazide (Microzide) 12.5 mg DAILY PO 10/11/20 09:00 10/11/20 08:47 DC Calcium Carbonate/ Glycine (Tums) 500 mg TIDPCHC PRN PO HEARTBURN / GAS 10/10/20 15:00 Brimonidine Tartrate (Alphagan) 1 drop BID OU 10/10/20 21:00 10/13/20 08:14 Timolol Maleate (Timoptic 0.5% Ophth) 1 drop BID OU 10/10/20 21:00 10/13/20 08:14 Pantoprazole Sodium (Protonix) 40 mg DAILY PRN PO HEARTBURN / GAS 10/10/20 15:00 Levothyroxine Sodium (Synthroid) 50 mcg DAILYAC PO 10/11/20 06:00 10/13/20 05:39 Nicotine (Nicoderm Cq 21mg Patch) 1 patch DAILY TD 10/11/20 11:30 Aripiprazole (Abilify) 2.5 mg DAILY PO 10/12/20 09:00 10/13/20 08:15 Sennosides (Senna) 17.2 mg PRN BID PRN PO CONSTIPATION 10/12/20 20:30 10/12/20 20:39 Current Medications Medications (Trade) Dose Ordered Sig/Bebe Route PRN Reason Start Time Stop Time Status Last Admin Dose Admin Aripiprazole (Abilify) 2.5 mg DAILY PO 10/12/20 09:00 10/13/20 08:15 Sennosides (Senna) 17.2 mg PRN BID PRN PO CONSTIPATION 10/12/20 20:30 10/12/20 20:39 I have reviewed the current psychotropics carefully including drug interactions. Risk benefit ratio favors no change other than as noted in my dictated progress note. Diagnosis: Problems: (1) MDD (major depressive disorder) (2) Major depressive disorder, recurrent episode (3) Anxiety disorder, unspecified CHRISTOPHE SALAS MD Oct 13, 2020 08:44
[2020-10-13] MEDS: NICOTINE 21MG PATCH. TD SCH (09:00)
[2020-10-13] MEDS ORDERED: SENNOSIDES 8.6 MG TABLET PO SCH (09:00)
--- NOTE | 2020-10-13 13:55 | NUR ---
WEEKLY ACTIVITY THERAPY NOTE Date of Admission: 10/10/2020 Date of AT Assessment: 10/12/20 Precipitating behaviors that initiated intake and admission: anxiety, depression, poor oral intake/weight loss, hopeless Goal aimed: to increase leisure education and socialization Initial Goal: Pt will participate in at least three individual or Activity Therapy groups per week. Weekly progress towards goal: goal evaluation begins next week Group participation level: martina with DIAGNOSTIC RADIOLOGIC TECHNOLOGIST during assessment on Monday Weekly highlights: arrived on [facility] Behaviors observed: in bed often, withdrawn Plan: no change to goal Beneficial adaptations: personal martina material on unit in red bag-restrictions for use noted
--- NOTE | 2020-10-13 14:11 | NUR ---
Nursing note: Patient in hallway for morning medication & assessment, meds taken whole. She is A/O X4, denies anxiety or depression at this time. Patient stated she is here for anxiety, depression, & loss of appetite. She refused her nicotine patch, voiced she is doing good. She walks independently, and was crocheting at nurses station earlier. Patient is upset about rings being taken to be put in safe. She is currently in her room resting. Will continue to monitor.
[2020-10-13 15:52] VITALS: BP 135/84
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
[2020-10-13] MEDS: MIRTAZAPINE 15 MG TABLET PO SCH (21:18)
[2020-10-13] MEDS: LATANOPROST 0.005% OPHTH SOLUTION 2.5ML BOTTLE. OU SCH (21:20)
--- NOTE | 2020-10-13 22:14 | PDOC ---
Exam Note: Nathan Note: Please also refer to the separate dictated note~for this date of service dictated separately.~Patient seen individually. Discussed the patient with Nursing staff reviewed the chart.~Reviewed interim history and current functioning. Reviewed vital signs,~Labs/ Radiology~and current medications noted below. Continue current treatment with the changes noted in the dictated addendum note Assessment: Vital Signs/I&O: Vital Signs Date Time Temp Pulse Resp B/P (MAP) Pulse Ox O2 Delivery O2 Flow Rate FiO2 10/13/20 15:52 97.6 87 16 135/84 (101) 91 I & O 10/12/20 10/12/20 10/13/20 15:00 23:00 07:00 Intake Total 720 ml 480 ml Balance 720 ml 480 ml Current Medications: Meds: Current Medications Medications (Trade) Dose Ordered Sig/Bebe Route PRN Reason Start Time Stop Time Status Last Admin Dose Admin Diazepam (Valium) 2 mg BID PRN PO ANXIETY 10/10/20 14:30 Duloxetine HCl (Cymbalta) 60 mg DAILY PO 10/11/20 09:00 10/13/20 08:15 Levothyroxine Sodium (Synthroid) 50 mcg DAILYAC PO 10/11/20 07:30 10/10/20 20:48 DC Lisinopril (Prinivil) 10 mg DAILY PO 10/11/20 09:00 10/11/20 08:47 DC Mirtazapine (Remeron) 15 mg QHS PO 10/10/20 21:00 10/13/20 21:18 Sertraline HCl (Zoloft) 150 mg DAILY PO 10/11/20 09:00 10/11/20 08:47 DC Simvastatin (Zocor) 20 mg QHS PO 10/10/20 21:00 10/11/20 08:47 DC 10/10/20 20:47 Latanoprost (Xalatan) 1 drop QHS OU 10/10/20 21:00 10/13/20 21:20 Non-Formulary Medication (Brimonidine Tartrate/Timolol (Combigan Eye Drops)) 1 drop BID EACHEYE 10/10/20 21:00 UNV Non-Formulary Medication (Calcium Carbonate (Tums Ultra Strength)) 470 mg TIDPCHC PRN PO HEARTBURN / GAS 10/10/20 14:30 UNV Non-Formulary Medication (Hydrochlorothiazide (Hydrochlorothiazide Tablet)) 12.5 mg DAILY PO 10/11/20 09:00 UNV Non-Formulary Medication (Omeprazole Magnesium (Prilosec Otc)) 1 tab DAILY PRN PO HEARTBURN / GAS 10/10/20 14:30 UNV Sennosides (Senna) 25.8 mg Q3DAYS PO 10/13/20 09:00 10/11/20 08:47 DC Acetaminophen (Tylenol) 650 mg PRN Q6HRS PRN PO MILD PAIN / TEMP > 100.3'F 10/10/20 14:45 Multi-Ingredient Ointment (Analgesic [place]) 1 lillian PRN QID PRN TP MUSCLE PAIN 10/10/20 14:45 Al Hydroxide/Mg Hydroxide (Mylanta Plus Xs) 15 ml PRN AFTMEALHC PRN PO 2ND CHOICE HEARTBURN/GAS 10/10/20 14:45 Magnesium Hydroxide (Milk Of Magnesia) 2,400 mg PRN QHS PRN PO 1ST CHOICE 10/10/20 14:45 Hydrochlorothiazide (Microzide) 12.5 mg DAILY PO 10/11/20 09:00 10/11/20 08:47 DC Calcium Carbonate/ Glycine (Tums) 500 mg TIDPCHC PRN PO 1ST CHOICE HEARTBURN/GAS 10/10/20 15:00 Brimonidine Tartrate (Alphagan) 1 drop BID OU 10/10/20 21:00 10/13/20 21:20 Timolol Maleate (Timoptic 0.5% [facility]) 1 drop BID OU 10/10/20 21:00 10/13/20 21:20 Pantoprazole Sodium (Protonix) 40 mg DAILY PRN PO 3RD CHOICE HEARTBURN/GAS 10/10/20 15:00 Levothyroxine Sodium (Synthroid) 50 mcg DAILYAC PO 10/11/20 06:00 10/13/20 05:39 Nicotine (Nicoderm Cq 21mg Patch) 1 patch DAILY TD 10/11/20 11:30 Aripiprazole (Abilify) 2.5 mg DAILY PO 10/12/20 09:00 10/13/20 11:48 DC 10/13/20 08:15 Sennosides (Senna) 17.2 mg PRN BID PRN PO 2ND CHOICE CONSTIPATION 10/12/20 20:30 10/12/20 20:39 Aripiprazole (Abilify) 5 mg DAILY PO 10/14/20 09:00 I have reviewed the current psychotropics carefully including drug interactions. Risk benefit ratio favors no change other than as noted in my dictated progress note. Diagnosis: Problems: (1) MDD (major depressive disorder) (2) Major depressive disorder, recurrent episode (3) Anxiety disorder, unspecified CHRISTOPHE SALAS MD Oct 13, 2020 22:14
--- NOTE | 2020-10-14 04:19 | NUR ---
Nursing Note The patient was located in her room sitting on the side of her bed for her assessment and medication pass. The patient was alert to name, date, location and situation. The patient was very pleasant during interactions with this nurse. The patient explained that she was very unhappy with how she was treated by day shift workers. The patient was unhappy about her rings being taken to be put in the safe. The patient was compliant with her HS medication and took them whole. The patient is currently sleeping in her room.
[2020-10-14 06:03] VITALS: BP 150/82
--- NOTE | 2020-10-14 08:29 | PDOC ---
Exam Note: Nathan Note: This note is a late entry for 10/13/2020 covers elements not covered in my initial note. Subjective: The patient was reviewed at treatment team meeting individually in the morning on 10/13/2020 with Danette Young, Iris Madrid (manager social responsibility), Deb, activity therapy and Kaitlynn MCCANN, discussed and reviewed the chart. The patient slept 7 hours previous night. Appetite is 70%. She has been doing martina and enjoys it. This distracts her from some of her own anxiety. I met with her in her room. Review of Systems: No CV, , pulmonary, eye, ENT system symptoms on review. Mental Status Exam: The patient is reasonably oriented. Speech coherent. Abstraction fair. Computation impaired. Language function intact. She states she had one anxiety attack but it was minimal. Attention span fair. No suicidal or homicidal ideation. Laboratory Data: Reviewed. Impression: Major depressive disorder, recurrent, severe. Anxiety disorder unspecified. Plan: Continue current psychotropics but we will increase the Abilify to 5 mg a day. Maintain Remeron, Cymbalta 60 mg a day. Assessment: Vital Signs/I&O: Vital Signs Date Time Temp Pulse Resp B/P (MAP) Pulse Ox O2 Delivery O2 Flow Rate FiO2 10/14/20 06:03 97.6 87 18 150/82 (104) 90 I & O 10/13/20 10/13/20 10/14/20 15:00 23:00 07:00 Intake Total 840 ml 480 ml Balance 840 ml 480 ml Current Medications: Meds: Current Medications Medications (Trade) Dose Ordered Sig/Bebe Route PRN Reason Start Time Stop Time Status Last Admin Dose Admin Diazepam (Valium) 2 mg BID PRN PO ANXIETY 10/10/20 14:30 Duloxetine HCl (Cymbalta) 60 mg DAILY PO 10/11/20 09:00 10/13/20 08:15 Levothyroxine Sodium (Synthroid) 50 mcg DAILYAC PO 10/11/20 07:30 10/10/20 20:48 DC Lisinopril (Prinivil) 10 mg DAILY PO 10/11/20 09:00 10/11/20 08:47 DC Mirtazapine (Remeron) 15 mg QHS PO 10/10/20 21:00 10/13/20 21:18 Sertraline HCl (Zoloft) 150 mg DAILY PO 10/11/20 09:00 10/11/20 08:47 DC Simvastatin (Zocor) 20 mg QHS PO 10/10/20 21:00 10/11/20 08:47 DC 10/10/20 20:47 Latanoprost (Xalatan) 1 drop QHS OU 10/10/20 21:00 10/13/20 21:20 Non-Formulary Medication (Brimonidine Tartrate/Timolol (Combigan Eye Drops)) 1 drop BID EACHEYE 10/10/20 21:00 UNV Non-Formulary Medication (Calcium Carbonate (Tums Ultra Strength)) 470 mg TIDPCHC PRN PO HEARTBURN / GAS 10/10/20 14:30 UNV Non-Formulary Medication (Hydrochlorothiazide (Hydrochlorothiazide Tablet)) 12.5 mg DAILY PO 10/11/20 09:00 UNV Non-Formulary Medication (Omeprazole Magnesium (Prilosec Otc)) 1 tab DAILY PRN PO HEARTBURN / GAS 10/10/20 14:30 UNV Sennosides (Senna) 25.8 mg Q3DAYS PO 10/13/20 09:00 10/11/20 08:47 DC Acetaminophen (Tylenol) 650 mg PRN Q6HRS PRN PO MILD PAIN / TEMP > 100.3'F 10/10/20 14:45 Multi-Ingredient Ointment (Analgesic [place]) 1 lillian PRN QID PRN TP MUSCLE PAIN 10/10/20 14:45 Al Hydroxide/Mg Hydroxide (Mylanta Plus Xs) 15 ml PRN AFTMEALHC PRN PO 2ND CHOICE HEARTBURN/GAS 10/10/20 14:45 Magnesium Hydroxide (Milk Of Magnesia) 2,400 mg PRN QHS PRN PO 1ST CHOICE 10/10/20 14:45 Hydrochlorothiazide (Microzide) 12.5 mg DAILY PO 10/11/20 09:00 10/11/20 08:47 DC Calcium Carbonate/ Glycine (Tums) 500 mg TIDPCHC PRN PO 1ST CHOICE HEARTBURN/GAS 10/10/20 15:00 Brimonidine Tartrate (Alphagan) 1 drop BID OU 10/10/20 21:00 10/13/20 21:20 Timolol Maleate (Timoptic 0.5% [place]) 1 drop BID OU 10/10/20 21:00 10/13/20 21:20 Pantoprazole Sodium (Protonix) 40 mg DAILY PRN PO 3RD CHOICE HEARTBURN/GAS 10/10/20 15:00 Levothyroxine Sodium (Synthroid) 50 mcg DAILYAC PO 10/11/20 06:00 10/13/20 05:39 Nicotine (Nicoderm Cq 21mg Patch) 1 patch DAILY TD 10/11/20 11:30 Aripiprazole (Abilify) 2.5 mg DAILY PO 10/12/20 09:00 10/13/20 11:48 DC 10/13/20 08:15 Sennosides (Senna) 17.2 mg PRN BID PRN PO 2ND CHOICE CONSTIPATION 10/12/20 20:30 10/12/20 20:39 Aripiprazole (Abilify) 5 mg DAILY PO 10/14/20 09:00 I have reviewed the current psychotropics carefully including drug interactions. Risk benefit ratio favors no change other than as noted in my dictated progress note. Diagnosis: Problems: (1) MDD (major depressive disorder) (2) Major depressive disorder, recurrent episode (3) Anxiety disorder, unspecified CHRISTOPHE SALAS MD Oct 14, 2020 08:29
[2020-10-14] MEDS: TIMOLOL 0.5% OPHTH SOLUTION 5ML BOTTLE. OU SCH ×2 (08:32→20:11)
[2020-10-14] MEDS: BRIMONIDINE 0.2% OPHTH SOLUTION 5ML BOTTLE. OU SCH ×2 (08:32→20:11)
[2020-10-14] MEDS: LEVOTHYROXINE 50 MCG TABLET PO SCH (08:33)
[2020-10-14] MEDS: ARIPiprazole 5 MG TABLET PO SCH (08:33)
[2020-10-14] MEDS: DULoxetine HCL 60 MG CAPSULE.DR PO SCH (08:33)
[2020-10-14] MEDS: NICOTINE 21MG PATCH. TD SCH ×2 (08:33→08:35)
--- NOTE | 2020-10-14 10:26 | TX PLAN ---
Interdisciplinary Tx Plan Admission Information Oct 10, 2020 at 13:10 Legal Status (on Admission): Voluntary DPOA/Guardian Name: Lydia Farias-self sign Other Contact Verified Code Status: Full Code Allergies: Coded Allergies: Penicillins (Verified Allergy, Unknown, 10/10/20) cephalexin (Verified Allergy, Unknown, 10/10/20) Estimated Length of Stay: 14 Diagnoses Primary Diagnosis: MDD Reasons for Admission: Depressed, Sig. Change Appetite, Anxiety/Panic, Suicidal ideation Problem in Patient's Words: Per Lydia, her anxiety had gotten so intense she was not able to do the things she desired. She could not even walk to the mailbox to get the mail. Additional Admission Comments: Per intake record, poor intake, weight has dropped to 82 pounds, has told her family that she plans to starve herself, nervous, anxious, and hopeless. Problems Active Problems: Poor intake Weight loss Thoughts of starving herself Polarizing anxiety Inactive Problems: Medication compliant Pt Strengths/Limitations Ability for Gray: Good Cognitive Functioning/Ability: Good Communication Skills/Ability: Good Financial Resources: Good Insight/Judgement: Fair Intellectual Ability: Good Physical Health: Fair Social Skills: Fair Stability in Family: Fair Verbal Skills: Good Discharge Criteria Discharge Criteria: Able meet basic life need, Able to meet health needs, Adequate arrangements @DC, Verbal commit aftercare, Verbal commit med comply, Improved mood/thought Preliminary Discharge Plan Preliminary DC Plan: Home Special Precautions Special Precautions: Suicide Risk Fall Risk: Moderate Initial D/C Plan Home Identified Discharge Needs: F/U with PCP and out patient psychiatrist Currently Utilized Resources Currently Utilized Resources/P: PCP Out patient psychiatry Identified Problems/Hx/Goals Objectives/Short-Term Goals Short Term Goals: Dec. Anxiety/Panic, Dec. Symp. Depression, Medication Stabilization, Monitor Med Effects, No Suicidal/Tejal. ideation, Prevent D eterioration, Promote Coping Skill Short Term Goals in Patient's: Mood stabilization , medication adjustment to decrease anxiety that is limiting what she can do. Interventions/Frequency Staff Interventions/Frequency&: Nursing to provide routine safety checks, medication administration, and adl support. PT/OT eval and treat as indicated. Psychiatry to see three times weekly. SW to see twice weekly. SW and recreational therapy groups as Lydia is willing. 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 Social: Lydia enjoys crocheting, reading, and prays daily. Education: Lydia graduated high school and completed an apprenticeship in small business. [place] the [place] Follow-up PCP Out patient psychiatry Community Provider/Family Inpu: Team meeting was held on 10/13/20, oracle database developer of treatment plan was completed on 10/14/20. Treatment Plan Explained Patient/Butcher Apprentice had this treatment plan explained to him/her as indicated by the signature below and has been given the opportunity to ask questions and make suggestions: Date: Patient/Butcher Apprentice Signature: DOROTHY GIVENS Oct 14, 2020 10:26
--- NOTE | 2020-10-14 15:04 | NUR ---
Pt has been quiet and withdrawn to her room majority of the day. She refused her nicotine patch this morning, stating that she does not need it. She continues to eat less than 25% even with a lot of encouragement from staff. Pt did not participate in group and stayed in her room when everyone went outside and listened to music. Pt continues to stay quiet and withdrawn to room and withdrawn to self.
[2020-10-14 16:09] VITALS: BP 93/54
[2020-10-14] MEDS: MIRTAZAPINE 15 MG TABLET PO SCH (20:11)
[2020-10-14] MEDS: LATANOPROST 0.005% OPHTH SOLUTION 2.5ML BOTTLE. OU SCH (20:12)
[2020-10-15 07:01] VITALS: BP 133/79
[2020-10-15] MEDS: DULoxetine HCL 60 MG CAPSULE.DR PO SCH (08:39)
[2020-10-15] MEDS: LEVOTHYROXINE 50 MCG TABLET PO SCH (08:39)
[2020-10-15] MEDS: ARIPiprazole 5 MG TABLET PO SCH (08:39)
[2020-10-15] MEDS: TIMOLOL 0.5% OPHTH SOLUTION 5ML BOTTLE. OU SCH ×2 (08:39→20:30)
[2020-10-15] MEDS: BRIMONIDINE 0.2% OPHTH SOLUTION 5ML BOTTLE. OU SCH ×2 (08:39→20:30)
[2020-10-15] MEDS: NICOTINE 21MG PATCH. TD SCH (08:41)
--- NOTE | 2020-10-15 14:31 | NUR ---
Pt has been calm, cooperative, and medication compliant. Pt has been quiet and withdrawn to her room and laying in bed for majority of the day. Pt continues to eat less than 25% of her meals. This morning pt was concerned that she had not received her thyroid medication, but nursing assured her that she has been getting it. The medication was scheduled later in the morning than she usually takes it, so the medication was moved to 0600 to ensure she would get it 1 hour before breakfast. Nurse discussed with pt the importance of staying hydrated and drinking the ensure that are provided with her meals so that she continues to get nutrients and hydration, she voiced her understanding. Pt has been crocheting at the front of the unit this afternoon. She continues to be withdrawn to herself and quiet.
[2020-10-15 15:48] VITALS: BP 101/68
[2020-10-15] MEDS: MIRTAZAPINE 15 MG TABLET PO SCH (20:28)
[2020-10-15] MEDS: LATANOPROST 0.005% OPHTH SOLUTION 2.5ML BOTTLE. OU SCH (20:30)
--- NOTE | 2020-10-15 21:45 | PDOC ---
Exam Note: Nathan Note: Please also refer to the separate dictated note~for this date of service dictated separately.~Patient seen individually. Discussed the patient with Nursing staff reviewed the chart.~Reviewed interim history and current functioning. Reviewed vital signs,~Labs/ Radiology~and current medications noted below. Continue current treatment with the changes noted in the dictated addendum note Assessment: Vital Signs/I&O: Vital Signs Date Time Temp Pulse Resp B/P (MAP) Pulse Ox O2 Delivery O2 Flow Rate FiO2 10/15/20 15:48 97.8 94 18 101/68 (79) 93 I & O 10/14/20 10/14/20 10/15/20 15:00 23:00 07:00 Intake Total 260 ml 240 ml Balance 260 ml 240 ml Labs: Laboratory Tests Test 10/15/20 19:11 Glucose (Fingerstick) 245 mg/dL (70-99) H Current Medications: Meds: Laboratory Tests Test 10/15/20 19:11 Glucose (Fingerstick) 245 mg/dL Current Medications Medications (Trade) Dose Ordered Sig/Bebe Route PRN Reason Start Time Stop Time Status Last Admin Dose Admin Diazepam (Valium) 2 mg BID PRN PO ANXIETY 10/10/20 14:30 Duloxetine HCl (Cymbalta) 60 mg DAILY PO 10/11/20 09:00 10/15/20 08:39 Levothyroxine Sodium (Synthroid) 50 mcg DAILYAC PO 10/11/20 07:30 10/10/20 20:48 DC Lisinopril (Prinivil) 10 mg DAILY PO 10/11/20 09:00 10/11/20 08:47 DC Mirtazapine (Remeron) 15 mg QHS PO 10/10/20 21:00 10/15/20 20:28 Sertraline HCl (Zoloft) 150 mg DAILY PO 10/11/20 09:00 10/11/20 08:47 DC Simvastatin (Zocor) 20 mg QHS PO 10/10/20 21:00 10/11/20 08:47 DC 10/10/20 20:47 Latanoprost (Xalatan) 1 drop QHS OU 10/10/20 21:00 10/15/20 20:30 Non-Formulary Medication (Brimonidine Tartrate/Timolol (Combigan Eye Drops)) 1 drop BID EACHEYE 10/10/20 21:00 UNV Non-Formulary Medication (Calcium Carbonate (Tums Ultra Strength)) 470 mg TIDPCHC PRN PO HEARTBURN / GAS 10/10/20 14:30 UNV Non-Formulary Medication (Hydrochlorothiazide (Hydrochlorothiazide Tablet)) 12.5 mg DAILY PO 10/11/20 09:00 UNV Non-Formulary Medication (Omeprazole Magnesium (Prilosec Otc)) 1 tab DAILY PRN PO HEARTBURN / GAS 10/10/20 14:30 UNV Sennosides (Senna) 25.8 mg Q3DAYS PO 10/13/20 09:00 10/11/20 08:47 DC Acetaminophen (Tylenol) 650 mg PRN Q6HRS PRN PO MILD PAIN / TEMP > 100.3'F 10/10/20 14:45 Multi-Ingredient Ointment (Analgesic [place]) 1 lillian PRN QID PRN TP MUSCLE PAIN 10/10/20 14:45 Al Hydroxide/Mg Hydroxide (Mylanta Plus Xs) 15 ml PRN AFTMEALHC PRN PO 2ND CHOICE HEARTBURN/GAS 10/10/20 14:45 Magnesium Hydroxide (Milk Of Magnesia) 2,400 mg PRN QHS PRN PO 1ST CHOICE 10/10/20 14:45 Hydrochlorothiazide (Microzide) 12.5 mg DAILY PO 10/11/20 09:00 10/11/20 08:47 DC Calcium Carbonate/ Glycine (Tums) 500 mg TIDPCHC PRN PO 1ST CHOICE HEARTBURN/GAS 10/10/20 15:00 10/14/20 08:34 Brimonidine Tartrate (Alphagan) 1 drop BID OU 10/10/20 21:00 10/15/20 20:30 Timolol Maleate (Timoptic 0.5% Oph) 1 drop BID OU 10/10/20 21:00 10/15/20 20:30 Pantoprazole Sodium (Protonix) 40 mg DAILY PRN PO 3RD CHOICE HEARTBURN/GAS 10/10/20 15:00 10/14/20 08:33 Levothyroxine Sodium (Synthroid) 50 mcg DAILYAC PO 10/11/20 06:00 10/15/20 09:01 DC 10/15/20 08:39 Nicotine (Nicoderm Cq 21mg Patch) 1 patch DAILY TD 10/11/20 11:30 Aripiprazole (Abilify) 2.5 mg DAILY PO 10/12/20 09:00 10/13/20 11:48 DC 10/13/20 08:15 Sennosides (Senna) 17.2 mg PRN BID PRN PO 2ND CHOICE CONSTIPATION 10/12/20 20:30 10/12/20 20:39 Aripiprazole (Abilify) 5 mg DAILY PO 10/14/20 09:00 10/15/20 08:39 Levothyroxine Sodium (Synthroid) 50 mcg DAILY06 PO 10/16/20 06:00 I have reviewed the current psychotropics carefully including drug interactions. Risk benefit ratio favors no change other than as noted in my dictated progress note. Diagnosis: Problems: (1) MDD (major depressive disorder) (2) Major depressive disorder, recurrent episode (3) Anxiety disorder, unspecified CHRISTOPHE SALAS MD Oct 15, 2020 21:45
--- NOTE | 2020-10-16 02:01 | NUR ---
Last evening pt said she is feeling no anxiety something she has not experienced in 4 years. She took meds whole without difficulty. She has had no behaviors tonight has been cooperative with staff and is now sleeping.
--- NOTE | 2020-10-16 04:58 | NUR ---
Room air 02 saturation 88% this morning. 02 at 1.5L per nc placed and sat increased to 90% pt has history of emphysema and is cooperative with 02 use.
[2020-10-16] MEDS: LEVOTHYROXINE 50 MCG TABLET PO SCH (05:46)
[2020-10-16 06:06] VITALS: BP 166/84
[2020-10-16] MEDS: DULoxetine HCL 60 MG CAPSULE.DR PO SCH (08:10)
[2020-10-16] MEDS: BRIMONIDINE 0.2% OPHTH SOLUTION 5ML BOTTLE. OU SCH ×2 (08:10→20:52)
[2020-10-16] MEDS: ARIPiprazole 5 MG TABLET PO SCH (08:10)
[2020-10-16] MEDS: TIMOLOL 0.5% OPHTH SOLUTION 5ML BOTTLE. OU SCH ×2 (08:10→20:52)
[2020-10-16] MEDS: NICOTINE 21MG PATCH. TD SCH (09:00)
[2020-10-16 15:40] VITALS: BP 116/74
[2020-10-16] MEDS ORDERED: NICOTINE 21MG PATCH. TD PRN (18:15)
--- NOTE | 2020-10-16 18:31 | NUR ---
Patient has been calm, compliant, organized, and withdrawn most of this shift. She has spent the majority of time in her room. Patient had complaint of constipation and requested a laxative; MD informed and new order received. Will continue to monitor and report to oncoming shift.
[2020-10-16] MEDS ORDERED: MAGNESIUM CITRATE 296 ML SOLUTION. PO ONE (19:00)
[2020-10-16] MEDS: MIRTAZAPINE 15 MG TABLET PO SCH (20:52)
[2020-10-16] MEDS: LATANOPROST 0.005% OPHTH SOLUTION 2.5ML BOTTLE. OU SCH (20:52)
--- NOTE | 2020-10-16 21:55 | PDOC ---
Exam Note: Nathan Note: Please also refer to the separate dictated note~for this date of service dictated separately.~Patient seen individually. Discussed the patient with Nursing staff reviewed the chart.~Reviewed interim history and current functioning. Reviewed vital signs,~Labs/ Radiology~and current medications noted below. Continue current treatment with the changes noted in the dictated addendum note Assessment: Vital Signs/I&O: Vital Signs Date Time Temp Pulse Resp B/P (MAP) Pulse Ox O2 Delivery O2 Flow Rate FiO2 10/16/20 15:40 97.6 92 17 116/74 (88) 93 I & O 10/15/20 10/15/20 10/16/20 15:00 23:00 07:00 Intake Total 120 ml 490 ml Balance 120 ml 490 ml Labs: Laboratory Tests Test 10/16/20 07:39 10/16/20 11:34 10/16/20 16:47 10/16/20 19:19 Glucose (Fingerstick) 103 mg/dL (70-99) H 111 mg/dL (70-99) H 229 mg/dL (70-99) H 161 mg/dL (70-99) H Current Medications: Meds: Laboratory Tests Test 10/16/20 07:39 10/16/20 11:34 10/16/20 16:47 10/16/20 19:19 Glucose (Fingerstick) 103 mg/dL 111 mg/dL 229 mg/dL 161 mg/dL Current Medications Medications (Trade) Dose Ordered Sig/Bebe Route PRN Reason Start Time Stop Time Status Last Admin Dose Admin Diazepam (Valium) 2 mg BID PRN PO ANXIETY 10/10/20 14:30 Duloxetine HCl (Cymbalta) 60 mg DAILY PO 10/11/20 09:00 10/16/20 08:10 Levothyroxine Sodium (Synthroid) 50 mcg DAILYAC PO 10/11/20 07:30 10/10/20 20:48 DC Lisinopril (Prinivil) 10 mg DAILY PO 10/11/20 09:00 10/11/20 08:47 DC Mirtazapine (Remeron) 15 mg QHS PO 10/10/20 21:00 10/16/20 20:52 Sertraline HCl (Zoloft) 150 mg DAILY PO 10/11/20 09:00 10/11/20 08:47 DC Simvastatin (Zocor) 20 mg QHS PO 10/10/20 21:00 10/11/20 08:47 DC 10/10/20 20:47 Latanoprost (Xalatan) 1 drop QHS OU 10/10/20 21:00 10/16/20 20:52 Non-Formulary Medication (Brimonidine Tartrate/Timolol (Combigan Eye Drops)) 1 drop BID EACHEYE 10/10/20 21:00 UNV Non-Formulary Medication (Calcium Carbonate (Tums Ultra Strength)) 470 mg TIDPCHC PRN PO HEARTBURN / GAS 10/10/20 14:30 UNV Non-Formulary Medication (Hydrochlorothiazide (Hydrochlorothiazide Tablet)) 12.5 mg DAILY PO 10/11/20 09:00 UNV Non-Formulary Medication (Omeprazole Magnesium (Prilosec Otc)) 1 tab DAILY PRN PO HEARTBURN / GAS 10/10/20 14:30 UNV Sennosides (Senna) 25.8 mg Q3DAYS PO 10/13/20 09:00 10/11/20 08:47 DC Acetaminophen (Tylenol) 650 mg PRN Q6HRS PRN PO MILD PAIN / TEMP > 100.3'F 10/10/20 14:45 Multi-Ingredient Ointment (Analgesic [place]) 1 lillian PRN QID PRN TP MUSCLE PAIN 10/10/20 14:45 Al Hydroxide/Mg Hydroxide (Mylanta Plus Xs) 15 ml PRN AFTMEALHC PRN PO 2ND CHOICE HEARTBURN/GAS 10/10/20 14:45 Magnesium Hydroxide (Milk Of Magnesia) 2,400 mg PRN QHS PRN PO 1ST CHOICE 10/10/20 14:45 10/16/20 21:23 Hydrochlorothiazide (Microzide) 12.5 mg DAILY PO 10/11/20 09:00 10/11/20 08:47 DC Calcium Carbonate/ Glycine (Tums) 500 mg TIDPCHC PRN PO 1ST CHOICE HEARTBURN/GAS 10/10/20 15:00 10/14/20 08:34 Brimonidine Tartrate (Alphagan) 1 drop BID OU 10/10/20 21:00 10/16/20 20:52 Timolol Maleate (Timoptic 0.5% Ophth) 1 drop BID OU 10/10/20 21:00 10/16/20 20:52 Pantoprazole Sodium (Protonix) 40 mg DAILY PRN PO 3RD CHOICE HEARTBURN/GAS 10/10/20 15:00 10/14/20 08:33 Levothyroxine Sodium (Synthroid) 50 mcg DAILYAC PO 10/11/20 06:00 10/15/20 09:01 DC 10/15/20 08:39 Nicotine (Nicoderm Cq 21mg Patch) 1 patch DAILY TD 10/11/20 11:30 10/16/20 18:04 DC Aripiprazole (Abilify) 2.5 mg DAILY PO 10/12/20 09:00 10/13/20 11:48 DC 10/13/20 08:15 Sennosides (Senna) 17.2 mg PRN BID PRN PO 2ND CHOICE CONSTIPATION 10/12/20 20:30 10/12/20 20:39 Aripiprazole (Abilify) 5 mg DAILY PO 10/14/20 09:00 10/16/20 08:10 Levothyroxine Sodium (Synthroid) 50 mcg DAILY06 PO 10/16/20 06:00 10/16/20 05:46 Nicotine (Nicoderm Cq 21mg Patch) 1 patch PRN DAILY PRN TD SMOKING CESSATION 10/16/20 18:15 Magnesium Citrate (Citroma) 296 ml 1X ONCE PO 10/16/20 19:00 10/16/20 19:01 DC 10/16/20 19:25 Current Medications Medications (Trade) Dose Ordered Sig/Bebe Route PRN Reason Start Time Stop Time Status Last Admin Dose Admin Levothyroxine Sodium (Synthroid) 50 mcg DAILY06 PO 10/16/20 06:00 10/16/20 05:46 Magnesium Citrate (Citroma) 296 ml 1X ONCE PO 10/16/20 19:00 10/16/20 19:01 DC 10/16/20 19:25 I have reviewed the current psychotropics carefully including drug interactions. Risk benefit ratio favors no change other than as noted in my dictated progress note. Diagnosis: Problems: (1) MDD (major depressive disorder) (2) Major depressive disorder, recurrent episode (3) Anxiety disorder, unspecified CHRISTOPHE SALAS MD Oct 16, 2020 21:55
[2020-10-17] MEDS: LEVOTHYROXINE 50 MCG TABLET PO SCH (05:33)
[2020-10-17 05:48] VITALS: BP 147/72
[2020-10-17] MEDS: DULoxetine HCL 60 MG CAPSULE.DR PO SCH (08:22)
[2020-10-17] MEDS: TIMOLOL 0.5% OPHTH SOLUTION 5ML BOTTLE. OU SCH ×2 (08:22→20:18)
[2020-10-17] MEDS: ARIPiprazole 5 MG TABLET PO SCH (08:22)
[2020-10-17] MEDS: BRIMONIDINE 0.2% OPHTH SOLUTION 5ML BOTTLE. OU SCH ×2 (08:22→20:18)
[2020-10-17 15:25] VITALS: BP 102/68
--- NOTE | 2020-10-17 18:07 | NUR ---
Patient has been calm, compliant, organized, and withdrawn most of this shift. She has spent the majority of time in her room; she did spend part of the afternoon in the day room crocheting. Will continue to monitor and report to oncoming shift.
[2020-10-17] MEDS: LATANOPROST 0.005% OPHTH SOLUTION 2.5ML BOTTLE. OU SCH (20:18)
[2020-10-17] MEDS: MIRTAZAPINE 15 MG TABLET PO SCH (20:18)
--- NOTE | 2020-10-17 21:57 | PDOC ---
Exam Note: Nathan Note: Please also refer to the separate dictated note~for this date of service dictated separately.~Patient seen individually. Discussed the patient with Nursing staff reviewed the chart.~Reviewed interim history and current functioning. Reviewed vital signs,~Labs/ Radiology~and current medications noted below. Continue current treatment with the changes noted in the dictated addendum note Assessment: Vital Signs/I&O: Vital Signs Date Time Temp Pulse Resp B/P (MAP) Pulse Ox O2 Delivery O2 Flow Rate FiO2 10/17/20 15:25 97.9 84 16 102/68 (79) 93 Room Air I & O 10/16/20 10/16/20 10/17/20 15:00 23:00 07:00 Intake Total 390 ml 660 ml Balance 390 ml 660 ml Labs: Laboratory Tests Test 10/17/20 06:00 10/17/20 07:35 10/17/20 12:39 SARS-CoV-2 (PCR) Negative (NEGATIVE) Glucose (Fingerstick) 102 mg/dL (70-99) H 152 mg/dL (70-99) H Current Medications: Meds: Laboratory Tests Test 10/17/20 06:00 10/17/20 07:35 10/17/20 12:39 Coronavirus (COVID-19)(PCR) Negative Glucose (Fingerstick) 102 mg/dL 152 mg/dL Current Medications Medications (Trade) Dose Ordered Sig/Bebe Route PRN Reason Start Time Stop Time Status Last Admin Dose Admin Diazepam (Valium) 2 mg BID PRN PO ANXIETY 10/10/20 14:30 Duloxetine HCl (Cymbalta) 60 mg DAILY PO 10/11/20 09:00 10/17/20 08:22 Levothyroxine Sodium (Synthroid) 50 mcg DAILYAC PO 10/11/20 07:30 10/10/20 20:48 DC Lisinopril (Prinivil) 10 mg DAILY PO 10/11/20 09:00 10/11/20 08:47 DC Mirtazapine (Remeron) 15 mg QHS PO 10/10/20 21:00 10/17/20 20:18 Sertraline HCl (Zoloft) 150 mg DAILY PO 10/11/20 09:00 10/11/20 08:47 DC Simvastatin (Zocor) 20 mg QHS PO 10/10/20 21:00 10/11/20 08:47 DC 10/10/20 20:47 Latanoprost (Xalatan) 1 drop QHS OU 10/10/20 21:00 10/17/20 20:18 Non-Formulary Medication (Brimonidine Tartrate/Timolol (Combigan Eye Drops)) 1 drop BID EACHEYE 10/10/20 21:00 UNV Non-Formulary Medication (Calcium Carbonate (Tums Ultra Strength)) 470 mg TIDPCHC PRN PO HEARTBURN / GAS 10/10/20 14:30 UNV Non-Formulary Medication (Hydrochlorothiazide (Hydrochlorothiazide Tablet)) 12.5 mg DAILY PO 10/11/20 09:00 UNV Non-Formulary Medication (Omeprazole Magnesium (Prilosec Otc)) 1 tab DAILY PRN PO HEARTBURN / GAS 10/10/20 14:30 UNV Sennosides (Senna) 25.8 mg Q3DAYS PO 10/13/20 09:00 10/11/20 08:47 DC Acetaminophen (Tylenol) 650 mg PRN Q6HRS PRN PO MILD PAIN / TEMP > 100.3'F 10/10/20 14:45 Multi-Ingredient Ointment (Analgesic [place]) 1 lillian PRN QID PRN TP MUSCLE PAIN 10/10/20 14:45 Al Hydroxide/Mg Hydroxide (Mylanta Plus Xs) 15 ml PRN AFTMEALHC PRN PO 2ND CHOICE HEARTBURN/GAS 10/10/20 14:45 Magnesium Hydroxide (Milk Of Magnesia) 2,400 mg PRN QHS PRN PO 1ST CHOICE CONSTIPATION 10/10/20 14:45 10/16/20 21:23 Hydrochlorothiazide (Microzide) 12.5 mg DAILY PO 10/11/20 09:00 10/11/20 08:47 DC Calcium Carbonate/ Glycine (Tums) 500 mg TIDPCHC PRN PO 1ST CHOICE HEARTBURN/GAS 10/10/20 15:00 10/14/20 08:34 Brimonidine Tartrate (Alphagan) 1 drop BID OU 10/10/20 21:00 10/17/20 20:18 Timolol Maleate (Timoptic 0.5% Oph) 1 drop BID OU 10/10/20 21:00 10/17/20 20:18 Pantoprazole Sodium (Protonix) 40 mg DAILY PRN PO 3RD CHOICE HEARTBURN/GAS 10/10/20 15:00 10/14/20 08:33 Levothyroxine Sodium (Synthroid) 50 mcg DAILYAC PO 10/11/20 06:00 10/15/20 09:01 DC 10/15/20 08:39 Nicotine (Nicoderm Cq 21mg Patch) 1 patch DAILY TD 10/11/20 11:30 10/16/20 18:04 DC Aripiprazole (Abilify) 2.5 mg DAILY PO 10/12/20 09:00 10/13/20 11:48 DC 10/13/20 08:15 Sennosides (Senna) 17.2 mg PRN BID PRN PO 2ND CHOICE CONSTIPATION 10/12/20 20:30 10/12/20 20:39 Aripiprazole (Abilify) 5 mg DAILY PO 10/14/20 09:00 10/17/20 08:22 Levothyroxine Sodium (Synthroid) 50 mcg DAILY06 PO 10/16/20 06:00 10/17/20 05:33 Nicotine (Nicoderm Cq 21mg Patch) 1 patch PRN DAILY PRN TD SMOKING CESSATION 10/16/20 18:15 Magnesium Citrate (Citroma) 296 ml 1X ONCE PO 10/16/20 19:00 10/16/20 19:01 DC 10/16/20 19:25 Psyllium Hydrophilic Mucilloid (Metamucil) 1 pkt DAILY PO 10/18/20 09:00 I have reviewed the current psychotropics carefully including drug interactions. Risk benefit ratio favors no change other than as noted in my dictated progress note. Diagnosis: Problems: (1) MDD (major depressive disorder) (2) Major depressive disorder, recurrent episode (3) Anxiety disorder, unspecified CHRISTOPHE SALAS MD Oct 17, 2020 21:57
--- NOTE | 2020-10-17 22:47 | NUR ---
Patient is sitting in the hallway on assumption of care, talking to a peer. She is in pleasant spirits. Compliant with assessments and medications whole. Denies anxiety. Denies any pain or discomfort. Patient appears to be sleeping comfortably at present time. Will continue to monitor.
[2020-10-18] MEDS: LEVOTHYROXINE 50 MCG TABLET PO SCH (05:16)
[2020-10-18 05:58] VITALS: BP 135/76
[2020-10-18] MEDS: PSYLLIUM SEED (WITH SUGAR) PACKET. PO SCH (08:24)
[2020-10-18] MEDS: ARIPiprazole 5 MG TABLET PO SCH (08:24)
[2020-10-18] MEDS: DULoxetine HCL 60 MG CAPSULE.DR PO SCH (08:24)
[2020-10-18] MEDS: TIMOLOL 0.5% OPHTH SOLUTION 5ML BOTTLE. OU SCH ×2 (08:25→20:28)
[2020-10-18] MEDS: BRIMONIDINE 0.2% OPHTH SOLUTION 5ML BOTTLE. OU SCH ×2 (08:26→20:28)
[2020-10-18 10:04] LABS: BASO % 1 % (0-3); EOS # 0.2 x10^3/uL (0.0-0.7); EOS % 4 % (0-3); HEMATOCRIT 43.9 % (36.0-47.0); HEMOGLOBIN 14.6 g/dL (12.0-15.5); LYMPH # 0.9 x10^3/uL (1.0-4.8); LYMPH % 15 % (24-48); MEAN CORPUSCULAR HEMOGLOBIN 33 pg (25-35); MEAN CORPUSCULAR HGB CONC 33 g/dL (31-37); MEAN CORPUSCULAR VOLUME 99 fL (79-100); MONO # 0.7 x10^3/uL (0.0-1.1); MONO % 11 % (0-9); NEUT # 4.1 x10^3uL (1.8-7.7); NEUT % 69 % (31-73); PLATELET COUNT 202 x10^3/uL (140-400); RED BLOOD COUNT 4.45 x10^6/uL (3.50-5.40); RED CELL DISTRIBUTION WIDTH 13.4 % (11.5-14.5)
[2020-10-18 10:17] LABS: ALBUMIN 2.8 g/dL (3.4-5.0); ALBUMIN/GLOBULIN RATIO 0.7 (1.0-1.7); CALCIUM 7.9 mg/dL (8.5-10.1); CREATININE 0.5 mg/dL (0.6-1.0); GFR 119.6; POTASSIUM 4.2 mmol/L (3.5-5.1); TOTAL BILIRUBIN 0.4 mg/dL (0.2-1.0); TOTAL PROTEIN 6.7 g/dL (6.4-8.2)
--- NOTE | 2020-10-18 14:46 | NUR ---
Nsg Note; Lydia has been calm, cooperative and med compliant today. she is eating and drinking well. She is sitting in the hallway, engaging in conversation with a peer. She is quiet and answers staff with brief answers when engaged
[2020-10-18 16:19] VITALS: BP 144/89
[2020-10-18] MEDS: MIRTAZAPINE 15 MG TABLET PO SCH (20:27)
[2020-10-18] MEDS: LATANOPROST 0.005% OPHTH SOLUTION 2.5ML BOTTLE. OU SCH (20:28)
--- NOTE | 2020-10-18 22:03 | PDOC ---
Exam Note: Nathan Note: Please also refer to the separate dictated note~for this date of service dictated separately.~Patient seen individually. Discussed the patient with Nursing staff reviewed the chart.~Reviewed interim history and current functioning. Reviewed vital signs,~Labs/ Radiology~and current medications noted below. Continue current treatment with the changes noted in the dictated addendum note Assessment: Vital Signs/I&O: Vital Signs Date Time Temp Pulse Resp B/P (MAP) Pulse Ox O2 Delivery O2 Flow Rate FiO2 10/18/20 16:19 98.4 78 16 144/89 (107) 96 10/17/20 15:25 Room Air I & O 10/17/20 10/17/20 10/18/20 15:00 23:00 07:00 Intake Total 720 ml 480 ml Balance 720 ml 480 ml Labs: Laboratory Tests Test 10/18/20 09:40 White Blood Count 6.0 x10^3/uL (4.0-11.0) Red Blood Count 4.45 x10^6/uL (3.50-5.40) Hemoglobin 14.6 g/dL (12.0-15.5) Hematocrit 43.9 % (36.0-47.0) Mean Corpuscular Volume 99 fL (79-100) Mean Corpuscular Hemoglobin 33 pg (25-35) Mean Corpuscular Hemoglobin Concent 33 g/dL (31-37) Red Cell Distribution Width 13.4 % (11.5-14.5) Platelet Count 202 x10^3/uL (140-400) Neutrophils (%) (Auto) 69 % (31-73) Lymphocytes (%) (Auto) 15 % (24-48) L Monocytes (%) (Auto) 11 % (0-9) H Eosinophils (%) (Auto) 4 % (0-3) H Basophils (%) (Auto) 1 % (0-3) Neutrophils # (Auto) 4.1 x10^3uL (1.8-7.7) Lymphocytes # (Auto) 0.9 x10^3/uL (1.0-4.8) L Monocytes # (Auto) 0.7 x10^3/uL (0.0-1.1) Eosinophils # (Auto) 0.2 x10^3/uL (0.0-0.7) Basophils # (Auto) 0.0 x10^3/uL (0.0-0.2) Sodium Level 140 mmol/L (136-145) Potassium Level 4.2 mmol/L (3.5-5.1) Chloride Level 102 mmol/L (98-107) Carbon Dioxide Level 35 mmol/L (21-32) H Anion Gap 3 (6-14) L Blood Urea Nitrogen 14 mg/dL (7-20) Creatinine 0.5 mg/dL (0.6-1.0) L Estimated GFR (Cockcroft-Gault) 119.6 BUN/Creatinine Ratio 28 (6-20) H Glucose Level 141 mg/dL (70-99) H Calcium Level 7.9 mg/dL (8.5-10.1) L Total Bilirubin 0.4 mg/dL (0.2-1.0) Aspartate Amino Transferase (AST) 42 U/L (15-37) H Alanine Aminotransferase (ALT) 50 U/L (14-59) Alkaline Phosphatase 91 U/L (46-116) Total Protein 6.7 g/dL (6.4-8.2) Albumin 2.8 g/dL (3.4-5.0) L Albumin/Globulin Ratio 0.7 (1.0-1.7) L Current Medications: Meds: Laboratory Tests Test 10/18/20 09:40 White Blood Count 6.0 x10^3/uL Red Blood Count 4.45 x10^6/uL Hemoglobin 14.6 g/dL Hematocrit 43.9 % Mean Corpuscular Volume 99 fL Mean Corpuscular Hemoglobin 33 pg Mean Corpuscular Hemoglobin Concent 33 g/dL Red Cell Distribution Width 13.4 % Platelet Count 202 x10^3/uL Neutrophils (%) (Auto) 69 % Lymphocytes (%) (Auto) 15 % Monocytes (%) (Auto) 11 % Eosinophils (%) (Auto) 4 % Basophils (%) (Auto) 1 % Neutrophils # (Auto) 4.1 x10^3uL Lymphocytes # (Auto) 0.9 x10^3/uL Monocytes # (Auto) 0.7 x10^3/uL Eosinophils # (Auto) 0.2 x10^3/uL Basophils # (Auto) 0.0 x10^3/uL Sodium Level 140 mmol/L Potassium Level 4.2 mmol/L Chloride Level 102 mmol/L Carbon Dioxide Level 35 mmol/L Anion Gap 3 Blood Urea Nitrogen 14 mg/dL Creatinine 0.5 mg/dL Estimated GFR (Cockcroft-Gault) 119.6 BUN/Creatinine Ratio 28 Glucose Level 141 mg/dL Calcium Level 7.9 mg/dL Total Bilirubin 0.4 mg/dL Aspartate Amino Transf (AST/SGOT) 42 U/L Alanine Aminotransferase (ALT/SGPT) 50 U/L Alkaline Phosphatase 91 U/L Total Protein 6.7 g/dL Albumin 2.8 g/dL Albumin/Globulin Ratio 0.7 Current Medications Medications (Trade) Dose Ordered Sig/Bebe Route PRN Reason Start Time Stop Time Status Last Admin Dose Admin Diazepam (Valium) 2 mg BID PRN PO ANXIETY 10/10/20 14:30 Duloxetine HCl (Cymbalta) 60 mg DAILY PO 10/11/20 09:00 10/18/20 08:24 Levothyroxine Sodium (Synthroid) 50 mcg DAILYAC PO 10/11/20 07:30 10/10/20 20:48 DC Lisinopril (Prinivil) 10 mg DAILY PO 10/11/20 09:00 10/11/20 08:47 DC Mirtazapine (Remeron) 15 mg QHS PO 10/10/20 21:00 10/18/20 20:27 Sertraline HCl (Zoloft) 150 mg DAILY PO 10/11/20 09:00 10/11/20 08:47 DC Simvastatin (Zocor) 20 mg QHS PO 10/10/20 21:00 10/11/20 08:47 DC 10/10/20 20:47 Latanoprost (Xalatan) 1 drop QHS OU 10/10/20 21:00 10/18/20 20:28 Non-Formulary Medication (Brimonidine Tartrate/Timolol (Combigan Eye Drops)) 1 drop BID EACHEYE 10/10/20 21:00 UNV Non-Formulary Medication (Calcium Carbonate (Tums Ultra Strength)) 470 mg TIDPCHC PRN PO HEARTBURN / GAS 10/10/20 14:30 UNV Non-Formulary Medication (Hydrochlorothiazide (Hydrochlorothiazide Tablet)) 12.5 mg DAILY PO 10/11/20 09:00 UNV Non-Formulary Medication (Omeprazole Magnesium (Prilosec Otc)) 1 tab DAILY PRN PO HEARTBURN / GAS 10/10/20 14:30 UNV Sennosides (Senna) 25.8 mg Q3DAYS PO 10/13/20 09:00 10/11/20 08:47 DC Acetaminophen (Tylenol) 650 mg PRN Q6HRS PRN PO MILD PAIN / TEMP > 100.3'F 10/10/20 14:45 Multi-Ingredient Ointment (Analgesic [place]) 1 lillian PRN QID PRN TP MUSCLE PAIN 10/10/20 14:45 Al Hydroxide/Mg Hydroxide (Mylanta Plus Xs) 15 ml PRN AFTMEALHC PRN PO 2ND CHOICE HEARTBURN/GAS 10/10/20 14:45 Magnesium Hydroxide (Milk Of Magnesia) 2,400 mg PRN QHS PRN PO 1ST CHOICE CONSTIPATION 10/10/20 14:45 10/16/20 21:23 Hydrochlorothiazide (Microzide) 12.5 mg DAILY PO 10/11/20 09:00 10/11/20 08:47 DC Calcium Carbonate/ Glycine (Tums) 500 mg TIDPCHC PRN PO 1ST CHOICE HEARTBURN/GAS 10/10/20 15:00 10/14/20 08:34 Brimonidine Tartrate (Alphagan) 1 drop BID OU 10/10/20 21:00 10/18/20 20:28 Timolol Maleate (Timoptic 0.5% Oph) 1 drop BID OU 10/10/20 21:00 10/18/20 20:28 Pantoprazole Sodium (Protonix) 40 mg DAILY PRN PO 3RD CHOICE HEARTBURN/GAS 10/10/20 15:00 10/14/20 08:33 Levothyroxine Sodium (Synthroid) 50 mcg DAILYAC PO 10/11/20 06:00 10/15/20 09:01 DC 10/15/20 08:39 Nicotine (Nicoderm Cq 21mg Patch) 1 patch DAILY TD 10/11/20 11:30 10/16/20 18:04 DC Aripiprazole (Abilify) 2.5 mg DAILY PO 10/12/20 09:00 10/13/20 11:48 DC 10/13/20 08:15 Sennosides (Senna) 17.2 mg PRN BID PRN PO 2ND CHOICE CONSTIPATION 10/12/20 20:30 10/12/20 20:39 Aripiprazole (Abilify) 5 mg DAILY PO 10/14/20 09:00 10/18/20 08:24 Levothyroxine Sodium (Synthroid) 50 mcg DAILY06 PO 10/16/20 06:00 10/18/20 05:16 Nicotine (Nicoderm Cq 21mg Patch) 1 patch PRN DAILY PRN TD SMOKING CESSATION 10/16/20 18:15 Magnesium Citrate (Citroma) 296 ml 1X ONCE PO 10/16/20 19:00 10/16/20 19:01 DC 10/16/20 19:25 Psyllium Hydrophilic Mucilloid (Metamucil) 1 pkt DAILY PO 10/18/20 09:00 10/18/20 08:24 Metformin HCl (Glucophage Xr) 500 mg DAILYWBKFT PO 10/19/20 08:00 Current Medications Medications (Trade) Dose Ordered Sig/Bebe Route PRN Reason Start Time Stop Time Status Last Admin Dose Admin Psyllium Hydrophilic Mucilloid (Metamucil) 1 pkt DAILY PO 10/18/20 09:00 10/18/20 08:24 I have reviewed the current psychotropics carefully including drug interactions. Risk benefit ratio favors no change other than as noted in my dictated progress note. Diagnosis: Problems: (1) MDD (major depressive disorder) (2) Major depressive disorder, recurrent episode (3) Anxiety disorder, unspecified CHRISTOPHE SALAS MD Oct 18, 2020 22:03
--- NOTE | 2020-10-18 22:40 | NUR ---
Patient is in her room on assumption of care, reading a book in her bed. She is in pleasant spirits. Compliant with assessments and medications whole. Denies anxiety. Denies any pain or discomfort. Patient appears to be sleeping comfortably at present time. Will continue to monitor.
[2020-10-19] MEDS: LEVOTHYROXINE 50 MCG TABLET PO SCH (05:08)
[2020-10-19 06:18] VITALS: BP 151/79
[2020-10-19] MEDS: ARIPiprazole 5 MG TABLET PO SCH (08:40)
[2020-10-19] MEDS: PSYLLIUM SEED (WITH SUGAR) PACKET. PO SCH (08:40)
[2020-10-19] MEDS: DULoxetine HCL 60 MG CAPSULE.DR PO SCH (08:40)
[2020-10-19] MEDS: metFORMIN XR 500 MG TAB.ER.24H PO SCH (08:40)
[2020-10-19] MEDS: BRIMONIDINE 0.2% OPHTH SOLUTION 5ML BOTTLE. OU SCH ×2 (09:00→21:00)
[2020-10-19] MEDS: TIMOLOL 0.5% OPHTH SOLUTION 5ML BOTTLE. OU SCH ×2 (09:00→21:00)
--- NOTE | 2020-10-19 09:16 | PDOC ---
Exam Note: Nathan Note: This note is a late entry for 10/15/2020 covers elements not covered in my initial note. Subjective: The patient was reviewed on telehealth rounds in the evening of 10/15/2020 because of the COVID-19 pandemic and my own ill health and restrictions to be on the unit consequent to this with Chicho MCCANN, discussed and reviewed the chart. The patient slept 8 hours previous night. Overall she states she is doing better and feels better than she has in the past 4 years with respect to her anxiety and depression. Dr. Isaacs is following her for her hypothyroidism and from a medical standpoint she does seem to be responding positively to the Abilify. Review of Systems: No CV, , pulmonary, eye, ENT system symptoms on review. Mental Status Exam: The patient is reasonably oriented. Speech coherent. Abstraction fair. Computation impaired. Language function intact. Mood and affect anxious. No suicidal or homicidal ideation. Laboratory Data: Reviewed. Impression: Major depressive disorder, recurrent, severe. Anxiety disorder unspecified. Plan: Continue current psychotropics. Assessment: Vital Signs/I&O: Vital Signs Date Time Temp Pulse Resp B/P (MAP) Pulse Ox O2 Delivery O2 Flow Rate FiO2 10/19/20 06:18 98.2 78 20 151/79 (103) 89 10/17/20 15:25 Room Air I & O 10/18/20 10/18/20 10/19/20 15:00 23:00 07:00 Intake Total 360 ml 480 ml Balance 360 ml 480 ml Labs: Laboratory Tests Test 10/18/20 09:40 White Blood Count 6.0 x10^3/uL (4.0-11.0) Red Blood Count 4.45 x10^6/uL (3.50-5.40) Hemoglobin 14.6 g/dL (12.0-15.5) Hematocrit 43.9 % (36.0-47.0) Mean Corpuscular Volume 99 fL (79-100) Mean Corpuscular Hemoglobin 33 pg (25-35) Mean Corpuscular Hemoglobin Concent 33 g/dL (31-37) Red Cell Distribution Width 13.4 % (11.5-14.5) Platelet Count 202 x10^3/uL (140-400) Neutrophils (%) (Auto) 69 % (31-73) Lymphocytes (%) (Auto) 15 % (24-48) L Monocytes (%) (Auto) 11 % (0-9) H Eosinophils (%) (Auto) 4 % (0-3) H Basophils (%) (Auto) 1 % (0-3) Neutrophils # (Auto) 4.1 x10^3uL (1.8-7.7) Lymphocytes # (Auto) 0.9 x10^3/uL (1.0-4.8) L Monocytes # (Auto) 0.7 x10^3/uL (0.0-1.1) Eosinophils # (Auto) 0.2 x10^3/uL (0.0-0.7) Basophils # (Auto) 0.0 x10^3/uL (0.0-0.2) Sodium Level 140 mmol/L (136-145) Potassium Level 4.2 mmol/L (3.5-5.1) Chloride Level 102 mmol/L (98-107) Carbon Dioxide Level 35 mmol/L (21-32) H Anion Gap 3 (6-14) L Blood Urea Nitrogen 14 mg/dL (7-20) Creatinine 0.5 mg/dL (0.6-1.0) L Estimated GFR (Cockcroft-Gault) 119.6 BUN/Creatinine Ratio 28 (6-20) H Glucose Level 141 mg/dL (70-99) H Calcium Level 7.9 mg/dL (8.5-10.1) L Total Bilirubin 0.4 mg/dL (0.2-1.0) Aspartate Amino Transferase (AST) 42 U/L (15-37) H Alanine Aminotransferase (ALT) 50 U/L (14-59) Alkaline Phosphatase 91 U/L (46-116) Total Protein 6.7 g/dL (6.4-8.2) Albumin 2.8 g/dL (3.4-5.0) L Albumin/Globulin Ratio 0.7 (1.0-1.7) L Current Medications: Meds: Laboratory Tests Test 10/18/20 09:40 White Blood Count 6.0 x10^3/uL Red Blood Count 4.45 x10^6/uL Hemoglobin 14.6 g/dL Hematocrit 43.9 % Mean Corpuscular Volume 99 fL Mean Corpuscular Hemoglobin 33 pg Mean Corpuscular Hemoglobin Concent 33 g/dL Red Cell Distribution Width 13.4 % Platelet Count 202 x10^3/uL Neutrophils (%) (Auto) 69 % Lymphocytes (%) (Auto) 15 % Monocytes (%) (Auto) 11 % Eosinophils (%) (Auto) 4 % Basophils (%) (Auto) 1 % Neutrophils # (Auto) 4.1 x10^3uL Lymphocytes # (Auto) 0.9 x10^3/uL Monocytes # (Auto) 0.7 x10^3/uL Eosinophils # (Auto) 0.2 x10^3/uL Basophils # (Auto) 0.0 x10^3/uL Sodium Level 140 mmol/L Potassium Level 4.2 mmol/L Chloride Level 102 mmol/L Carbon Dioxide Level 35 mmol/L Anion Gap 3 Blood Urea Nitrogen 14 mg/dL Creatinine 0.5 mg/dL Estimated GFR (Cockcroft-Gault) 119.6 BUN/Creatinine Ratio 28 Glucose Level 141 mg/dL Calcium Level 7.9 mg/dL Total Bilirubin 0.4 mg/dL Aspartate Amino Transf (AST/SGOT) 42 U/L Alanine Aminotransferase (ALT/SGPT) 50 U/L Alkaline Phosphatase 91 U/L Total Protein 6.7 g/dL Albumin 2.8 g/dL Albumin/Globulin Ratio 0.7 Current Medications Medications (Trade) Dose Ordered Sig/Bebe Route PRN Reason Start Time Stop Time Status Last Admin Dose Admin Diazepam (Valium) 2 mg BID PRN PO ANXIETY 10/10/20 14:30 Duloxetine HCl (Cymbalta) 60 mg DAILY PO 10/11/20 09:00 10/19/20 08:40 Levothyroxine Sodium (Synthroid) 50 mcg DAILYAC PO 10/11/20 07:30 10/10/20 20:48 DC Lisinopril (Prinivil) 10 mg DAILY PO 10/11/20 09:00 10/11/20 08:47 DC Mirtazapine (Remeron) 15 mg QHS PO 10/10/20 21:00 10/18/20 20:27 Sertraline HCl (Zoloft) 150 mg DAILY PO 10/11/20 09:00 10/11/20 08:47 DC Simvastatin (Zocor) 20 mg QHS PO 10/10/20 21:00 10/11/20 08:47 DC 10/10/20 20:47 Latanoprost (Xalatan) 1 drop QHS OU 10/10/20 21:00 10/18/20 20:28 Non-Formulary Medication (Brimonidine Tartrate/Timolol (Combigan Eye Drops)) 1 drop BID EACHEYE 10/10/20 21:00 UNV Non-Formulary Medication (Calcium Carbonate (Tums Ultra Strength)) 470 mg TIDPCHC PRN PO HEARTBURN / GAS 10/10/20 14:30 UNV Non-Formulary Medication (Hydrochlorothiazide (Hydrochlorothiazide Tablet)) 12.5 mg DAILY PO 10/11/20 09:00 UNV Non-Formulary Medication (Omeprazole Magnesium (Prilosec Otc)) 1 tab DAILY PRN PO HEARTBURN / GAS 10/10/20 14:30 UNV Sennosides (Senna) 25.8 mg Q3DAYS PO 10/13/20 09:00 10/11/20 08:47 DC Acetaminophen (Tylenol) 650 mg PRN Q6HRS PRN PO MILD PAIN / TEMP > 100.3'F 10/10/20 14:45 Multi-Ingredient Ointment (Analgesic [place]) 1 lillian PRN QID PRN TP MUSCLE PAIN 10/10/20 14:45 Al Hydroxide/Mg Hydroxide (Mylanta Plus Xs) 15 ml PRN AFTMEALHC PRN PO 2ND CHOICE HEARTBURN/GAS 10/10/20 14:45 Magnesium Hydroxide (Milk Of Magnesia) 2,400 mg PRN QHS PRN PO 1ST CHOICE CONSTIPATION 10/10/20 14:45 10/16/20 21:23 Hydrochlorothiazide (Microzide) 12.5 mg DAILY PO 10/11/20 09:00 10/11/20 08:47 DC Calcium Carbonate/ Glycine (Tums) 500 mg TIDPCHC PRN PO 1ST CHOICE HEARTBURN/GAS 10/10/20 15:00 10/14/20 08:34 Brimonidine Tartrate (Alphagan) 1 drop BID OU 10/10/20 21:00 10/18/20 20:28 Timolol Maleate (Timoptic 0.5% Oph) 1 drop BID OU 10/10/20 21:00 10/18/20 20:28 Pantoprazole Sodium (Protonix) 40 mg DAILY PRN PO 3RD CHOICE HEARTBURN/GAS 10/10/20 15:00 10/14/20 08:33 Levothyroxine Sodium (Synthroid) 50 mcg DAILYAC PO 10/11/20 06:00 10/15/20 09:01 DC 10/15/20 08:39 Nicotine (Nicoderm Cq 21mg Patch) 1 patch DAILY TD 10/11/20 11:30 10/16/20 18:04 DC Aripiprazole (Abilify) 2.5 mg DAILY PO 10/12/20 09:00 10/13/20 11:48 DC 10/13/20 08:15 Sennosides (Senna) 17.2 mg PRN BID PRN PO 2ND CHOICE CONSTIPATION 10/12/20 20:30 10/12/20 20:39 Aripiprazole (Abilify) 5 mg DAILY PO 10/14/20 09:00 10/19/20 08:40 Levothyroxine Sodium (Synthroid) 50 mcg DAILY06 PO 10/16/20 06:00 10/19/20 05:08 Nicotine (Nicoderm Cq 21mg Patch) 1 patch PRN DAILY PRN TD SMOKING CESSATION 10/16/20 18:15 Magnesium Citrate (Citroma) 296 ml 1X ONCE PO 10/16/20 19:00 10/16/20 19:01 DC 10/16/20 19:25 Psyllium Hydrophilic Mucilloid (Metamucil) 1 pkt DAILY PO 10/18/20 09:00 10/19/20 08:40 Metformin HCl (Glucophage Xr) 500 mg DAILYWBKFT PO 10/19/20 08:00 10/19/20 08:40 Current Medications Medications (Trade) Dose Ordered Sig/Bebe Route PRN Reason Start Time Stop Time Status Last Admin Dose Admin Metformin HCl (Glucophage Xr) 500 mg DAILYWBKFT PO 10/19/20 08:00 10/19/20 08:40 I have reviewed the current psychotropics carefully including drug interactions. Risk benefit ratio favors no change other than as noted in my dictated progress note. Diagnosis: Problems: (1) MDD (major depressive disorder) (2) Major depressive disorder, recurrent episode (3) Anxiety disorder, unspecified CHRISTOPHE SALAS MD Oct 19, 2020 09:16
--- NOTE | 2020-10-19 09:42 | NUR ---
Pt appropriate and cooperative during shift. She is med compliant with medications taken whole, she does c/o difficulty swallowing larger tablets which requires them to be split. Pt is A&Ox4, absent of SI/HI/VH/AH/delusions/pain at this time. She just started a new mediation today, Metformin. Pt asked questions related to the medication and purpose for taking it and appeared receptive to education provided. She is appropriate with her interactions with others and is able to make her needs known. Plan of care continues, will pass to next shift.
--- NOTE | 2020-10-19 11:09 | PDOC ---
Exam Note: Nathan Note: This note is a late entry for 10/16/2020 covers elements not covered in my initial note. Subjective: The patient was seen individually in the evening of 10/16/2020 with Chicho MCCANN, discussed and reviewed the chart. The patient slept 8-1/2 hours previous night. She has generally been doing well. She complains of some constipation. We will address symptomatically. She states her mood is much better. Anxiety is improved. Review of Systems: She complains of some constipation. No CV, , pulmonary, eye, ENT system symptoms on review. Mental Status Exam: The patient is reasonably oriented. She is very pleasant, verbal, interactive, cooperative. Speech coherent. Abstraction fair. Computation impaired. Language function intact. Mood and anxiety are much improved. No suicidal or homicidal ideation. Laboratory Data: Reviewed. Impression: Major depressive disorder, recurrent, severe. Anxiety disorder unspecified. Plan: Continue current psychotropics. Assessment: Vital Signs/I&O: Vital Signs Date Time Temp Pulse Resp B/P (MAP) Pulse Ox O2 Delivery O2 Flow Rate FiO2 10/19/20 06:18 98.2 78 20 151/79 (103) 89 10/17/20 15:25 Room Air I & O 10/18/20 10/18/20 10/19/20 15:00 23:00 07:00 Intake Total 360 ml 480 ml Balance 360 ml 480 ml Current Medications: Meds: Current Medications Medications (Trade) Dose Ordered Sig/Bebe Route PRN Reason Start Time Stop Time Status Last Admin Dose Admin Diazepam (Valium) 2 mg BID PRN PO ANXIETY 10/10/20 14:30 Duloxetine HCl (Cymbalta) 60 mg DAILY PO 10/11/20 09:00 10/19/20 08:40 Levothyroxine Sodium (Synthroid) 50 mcg DAILYAC PO 10/11/20 07:30 10/10/20 20:48 DC Lisinopril (Prinivil) 10 mg DAILY PO 10/11/20 09:00 10/11/20 08:47 DC Mirtazapine (Remeron) 15 mg QHS PO 10/10/20 21:00 10/18/20 20:27 Sertraline HCl (Zoloft) 150 mg DAILY PO 10/11/20 09:00 10/11/20 08:47 DC Simvastatin (Zocor) 20 mg QHS PO 10/10/20 21:00 10/11/20 08:47 DC 10/10/20 20:47 Latanoprost (Xalatan) 1 drop QHS OU 10/10/20 21:00 10/18/20 20:28 Non-Formulary Medication (Brimonidine Tartrate/Timolol (Combigan Eye Drops)) 1 drop BID EACHEYE 10/10/20 21:00 UNV Non-Formulary Medication (Calcium Carbonate (Tums Ultra Strength)) 470 mg TIDPCHC PRN PO HEARTBURN / GAS 10/10/20 14:30 UNV Non-Formulary Medication (Hydrochlorothiazide (Hydrochlorothiazide Tablet)) 12.5 mg DAILY PO 10/11/20 09:00 UNV Non-Formulary Medication (Omeprazole Magnesium (Prilosec Otc)) 1 tab DAILY PRN PO HEARTBURN / GAS 10/10/20 14:30 UNV Sennosides (Senna) 25.8 mg Q3DAYS PO 10/13/20 09:00 10/11/20 08:47 DC Acetaminophen (Tylenol) 650 mg PRN Q6HRS PRN PO MILD PAIN / TEMP > 100.3'F 10/10/20 14:45 Multi-Ingredient Ointment (Analgesic [place]) 1 lillian PRN QID PRN TP MUSCLE PAIN 10/10/20 14:45 Al Hydroxide/Mg Hydroxide (Mylanta Plus Xs) 15 ml PRN AFTMEALHC PRN PO 2ND CHOICE HEARTBURN/GAS 10/10/20 14:45 Magnesium Hydroxide (Milk Of Magnesia) 2,400 mg PRN QHS PRN PO 1ST CHOICE CONSTIPATION 10/10/20 14:45 10/16/20 21:23 Hydrochlorothiazide (Microzide) 12.5 mg DAILY PO 10/11/20 09:00 10/11/20 08:47 DC Calcium Carbonate/ Glycine (Tums) 500 mg TIDPCHC PRN PO 1ST CHOICE HEARTBURN/GAS 10/10/20 15:00 10/14/20 08:34 Brimonidine Tartrate (Alphagan) 1 drop BID OU 10/10/20 21:00 10/18/20 20:28 Timolol Maleate (Timoptic 0.5% [facility]) 1 drop BID OU 10/10/20 21:00 10/18/20 20:28 Pantoprazole Sodium (Protonix) 40 mg DAILY PRN PO 3RD CHOICE HEARTBURN/GAS 10/10/20 15:00 10/14/20 08:33 Levothyroxine Sodium (Synthroid) 50 mcg DAILYAC PO 10/11/20 06:00 10/15/20 09:01 DC 10/15/20 08:39 Nicotine (Nicoderm Cq 21mg Patch) 1 patch DAILY TD 10/11/20 11:30 10/16/20 18:04 DC Aripiprazole (Abilify) 2.5 mg DAILY PO 10/12/20 09:00 10/13/20 11:48 DC 10/13/20 08:15 Sennosides (Senna) 17.2 mg PRN BID PRN PO 2ND CHOICE CONSTIPATION 10/12/20 20:30 10/12/20 20:39 Aripiprazole (Abilify) 5 mg DAILY PO 10/14/20 09:00 10/19/20 08:40 Levothyroxine Sodium (Synthroid) 50 mcg DAILY06 PO 10/16/20 06:00 10/19/20 05:08 Nicotine (Nicoderm Cq 21mg Patch) 1 patch PRN DAILY PRN TD SMOKING CESSATION 10/16/20 18:15 Magnesium Citrate (Citroma) 296 ml 1X ONCE PO 10/16/20 19:00 10/16/20 19:01 DC 10/16/20 19:25 Psyllium Hydrophilic Mucilloid (Metamucil) 1 pkt DAILY PO 10/18/20 09:00 10/19/20 08:40 Metformin HCl (Glucophage Xr) 500 mg DAILYWBKFT PO 10/19/20 08:00 10/19/20 08:40 Current Medications Medications (Trade) Dose Ordered Sig/Bebe Route PRN Reason Start Time Stop Time Status Last Admin Dose Admin Metformin HCl (Glucophage Xr) 500 mg DAILYWBKFT PO 10/19/20 08:00 10/19/20 08:40 I have reviewed the current psychotropics carefully including drug interactions. Risk benefit ratio favors no change other than as noted in my dictated progress note. Diagnosis: Problems: (1) MDD (major depressive disorder) (2) Major depressive disorder, recurrent episode (3) Anxiety disorder, unspecified CHRISTOPHE SALAS MD Oct 19, 2020 11:09
--- NOTE | 2020-10-19 11:24 | PDOC ---
Exam Note: Nathan Note: This note is a late entry for 10/17/2020 covers elements not covered in my initial note. Subjective: The patient was seen individually in the evening of 10/17/2020 with Anamika MCCANN, discussed and reviewed the chart. The patient slept 6-3/4 hours previous night. She has been doing well. Review of Systems: She complains of some constipation. No CV, , pulmonary, eye, ENT system symptoms on review. Mental Status Exam: The patient is reasonably oriented. As I met with the patient individually, she stated her anxiety was again much better. Increased Abilify seems to have helped with this. She is tolerating it without side effects. Speech coherent. Abstraction fair. Computation impaired. Language function intact. Mood and anxiety much better. No suicidal or homicidal ideation. Laboratory Data: Reviewed. Impression: Major depressive disorder, recurrent, severe. Anxiety disorder unspecified. Plan: Continue current psychotropics. Assessment: Vital Signs/I&O: Vital Signs Date Time Temp Pulse Resp B/P (MAP) Pulse Ox O2 Delivery O2 Flow Rate FiO2 10/19/20 06:18 98.2 78 20 151/79 (103) 89 10/17/20 15:25 Room Air I & O 10/18/20 10/18/20 10/19/20 15:00 23:00 07:00 Intake Total 360 ml 480 ml Balance 360 ml 480 ml Current Medications: Meds: Current Medications Medications (Trade) Dose Ordered Sig/Bebe Route PRN Reason Start Time Stop Time Status Last Admin Dose Admin Metformin HCl (Glucophage Xr) 500 mg DAILYWBKFT PO 10/19/20 08:00 10/19/20 08:40 I have reviewed the current psychotropics carefully including drug interactions. Risk benefit ratio favors no change other than as noted in my dictated progress note. Diagnosis: Problems: (1) MDD (major depressive disorder) (2) Major depressive disorder, recurrent episode (3) Anxiety disorder, unspecified CHRISTOPHE SALAS MD Oct 19, 2020 11:24
--- NOTE | 2020-10-19 11:42 | PDOC ---
Exam Note: Nathan Note: This note is a late entry for 10/18/2020 covers elements not covered in my initial note. Subjective: The patient was seen individually in the evening of 10/18/2020 with Anamika MCCANN, discussed and reviewed the chart. The patient slept 7 hours previous night. She has been started on metformin per Dr. Isaacs due to her raised blood sugars. She has been fairly appropriate on the unit. I met with her at length in her room. Overall the patient states she is doing better with anxiety and mood though at times she has anxiety emanating for no reason. She shared this only after I discussed with her that we may transition her home to outpatient treatment early this week. She is wanting to make sure she is ready to be discharged and does not want to be in a barry, some of which is understandable. We addressed cognitive behavioral ways to help improve mood and reduce paranoia. Review of Systems: No CV, , pulmonary, eye, ENT system symptoms on review. Mental Status Exam: The patient is reasonably oriented. She is reading a book in her room. Speech coherent. Abstraction fair. Computation impaired. Language function intact. Mood and affect improved, less anxious. Laboratory Data: Reviewed. Impression: Major depressive disorder, recurrent, severe. Anxiety disorder unspecified. Plan: Continue current psychotropics. We may consider increasing Abilify if paranoia, anxiety resurfaces or there is a need to increase augmentation of her current dosage of Cymbalta with the Abilify. Assessment: Vital Signs/I&O: Vital Signs Date Time Temp Pulse Resp B/P (MAP) Pulse Ox O2 Delivery O2 Flow Rate FiO2 10/19/20 06:18 98.2 78 20 151/79 (103) 89 10/17/20 15:25 Room Air I & O 10/18/20 10/18/20 10/19/20 15:00 23:00 07:00 Intake Total 360 ml 480 ml Balance 360 ml 480 ml Current Medications: Meds: Current Medications Medications (Trade) Dose Ordered Sig/Bebe Route PRN Reason Start Time Stop Time Status Last Admin Dose Admin Diazepam (Valium) 2 mg BID PRN PO ANXIETY 10/10/20 14:30 Duloxetine HCl (Cymbalta) 60 mg DAILY PO 10/11/20 09:00 10/19/20 08:40 Levothyroxine Sodium (Synthroid) 50 mcg DAILYAC PO 10/11/20 07:30 10/10/20 20:48 DC Lisinopril (Prinivil) 10 mg DAILY PO 10/11/20 09:00 10/11/20 08:47 DC Mirtazapine (Remeron) 15 mg QHS PO 10/10/20 21:00 10/18/20 20:27 Sertraline HCl (Zoloft) 150 mg DAILY PO 10/11/20 09:00 10/11/20 08:47 DC Simvastatin (Zocor) 20 mg QHS PO 10/10/20 21:00 10/11/20 08:47 DC 10/10/20 20:47 Latanoprost (Xalatan) 1 drop QHS OU 10/10/20 21:00 10/18/20 20:28 Non-Formulary Medication (Brimonidine Tartrate/Timolol (Combigan Eye Drops)) 1 drop BID EACHEYE 10/10/20 21:00 UNV Non-Formulary Medication (Calcium Carbonate (Tums Ultra Strength)) 470 mg TIDPCHC PRN PO HEARTBURN / GAS 10/10/20 14:30 UNV Non-Formulary Medication (Hydrochlorothiazide (Hydrochlorothiazide Tablet)) 12.5 mg DAILY PO 10/11/20 09:00 UNV Non-Formulary Medication (Omeprazole Magnesium (Prilosec Otc)) 1 tab DAILY PRN PO HEARTBURN / GAS 10/10/20 14:30 UNV Sennosides (Senna) 25.8 mg Q3DAYS PO 10/13/20 09:00 10/11/20 08:47 DC Acetaminophen (Tylenol) 650 mg PRN Q6HRS PRN PO MILD PAIN / TEMP > 100.3'F 10/10/20 14:45 Multi-Ingredient Ointment (Analgesic [place]) 1 lillian PRN QID PRN TP MUSCLE PAIN 10/10/20 14:45 Al Hydroxide/Mg Hydroxide (Mylanta Plus Xs) 15 ml PRN AFTMEALHC PRN PO 2ND CHOICE HEARTBURN/GAS 10/10/20 14:45 Magnesium Hydroxide (Milk Of Magnesia) 2,400 mg PRN QHS PRN PO 1ST CHOICE CONSTIPATION 10/10/20 14:45 10/16/20 21:23 Hydrochlorothiazide (Microzide) 12.5 mg DAILY PO 10/11/20 09:00 10/11/20 08:47 DC Calcium Carbonate/ Glycine (Tums) 500 mg TIDPCHC PRN PO 1ST CHOICE HEARTBURN/GAS 10/10/20 15:00 10/14/20 08:34 Brimonidine Tartrate (Alphagan) 1 drop BID OU 10/10/20 21:00 10/18/20 20:28 Timolol Maleate (Timoptic 0.5% Oph) 1 drop BID OU 10/10/20 21:00 10/18/20 20:28 Pantoprazole Sodium (Protonix) 40 mg DAILY PRN PO 3RD CHOICE HEARTBURN/GAS 10/10/20 15:00 10/14/20 08:33 Levothyroxine Sodium (Synthroid) 50 mcg DAILYAC PO 10/11/20 06:00 10/15/20 09:01 DC 10/15/20 08:39 Nicotine (Nicoderm Cq 21mg Patch) 1 patch DAILY TD 10/11/20 11:30 10/16/20 18:04 DC Aripiprazole (Abilify) 2.5 mg DAILY PO 10/12/20 09:00 10/13/20 11:48 DC 10/13/20 08:15 Sennosides (Senna) 17.2 mg PRN BID PRN PO 2ND CHOICE CONSTIPATION 10/12/20 20:30 10/12/20 20:39 Aripiprazole (Abilify) 5 mg DAILY PO 10/14/20 09:00 10/19/20 08:40 Levothyroxine Sodium (Synthroid) 50 mcg DAILY06 PO 10/16/20 06:00 10/19/20 05:08 Nicotine (Nicoderm Cq 21mg Patch) 1 patch PRN DAILY PRN TD SMOKING CESSATION 10/16/20 18:15 Magnesium Citrate (Citroma) 296 ml 1X ONCE PO 10/16/20 19:00 10/16/20 19:01 DC 10/16/20 19:25 Psyllium Hydrophilic Mucilloid (Metamucil) 1 pkt DAILY PO 10/18/20 09:00 10/19/20 08:40 Metformin HCl (Glucophage Xr) 500 mg DAILYWBKFT PO 10/19/20 08:00 10/19/20 08:40 Current Medications Medications (Trade) Dose Ordered Sig/Bebe Route PRN Reason Start Time Stop Time Status Last Admin Dose Admin Metformin HCl (Glucophage Xr) 500 mg DAILYWBKFT PO 10/19/20 08:00 10/19/20 08:40 I have reviewed the current psychotropics carefully including drug interactions. Risk benefit ratio favors no change other than as noted in my dictated progress note. Diagnosis: Problems: (1) Major depressive disorder, recurrent episode (2) Anxiety disorder, unspecified CHRISTOPHE SALAS MD Oct 19, 2020 11:42
--- NOTE | 2020-10-19 12:49 | NUR ---
WEEKLY ACTIVITY THERAPY NOTE Date of Admission: 10/10/2020 Date of AT Assessment: 10/12/20 Precipitating behaviors that initiated intake and admission: anxiety, depression, poor oral intake/weight loss, hopeless Goal aimed: to increase leisure education and socialization Initial Goal: Pt will participate in at least three individual or Activity Therapy groups per week. Weekly progress towards goal: did not achieve, 1/3 Group participation level: 1 mod Weekly highlights: crocheting with RN CAMP Monday Behaviors observed: independent, self-guided leisure Plan: no change to goal Beneficial adaptations: martina
--- NOTE | 2020-10-19 14:40 | TX PLAN ---
Interdisciplinary Tx Plan Admission Information Oct 10, 2020 at 13:10 Legal Status (on Admission): Voluntary DPOA/Guardian Name: Lydia Farias-self sign Other Contact Verified Code Status: Full Code Allergies: Coded Allergies: Penicillins (Verified Allergy, Unknown, 10/10/20) cephalexin (Verified Allergy, Unknown, 10/10/20) Estimated Length of Stay: 14 Diagnoses Primary Diagnosis: MDD Reasons for Admission: Depressed, Sig. Change Appetite, Anxiety/Panic, Suicidal ideation Problem in Patient's Words: Per Lydia, her anxiety had gotten so intense she was not able to do the things she desired. She could not even walk to the mailbox to get the mail. Additional Admission Comments: Per intake record, poor intake, weight has dropped to 82 pounds, has told her family that she plans to starve herself, nervous, anxious, and hopeless. Problems Active Problems: Poor intake Weight loss Thoughts of starving herself Polarizing anxiety Inactive Problems: Medication compliant Pt Strengths/Limitations Ability for [place]: Good Cognitive Functioning/Ability: Good Communication Skills/Ability: Good Financial Resources: Good Insight/Judgement: Fair Intellectual Ability: Good Physical Health: Fair Social Skills: Fair Stability in Family: Fair Verbal Skills: Good Discharge Criteria Discharge Criteria: Able meet basic life need, Able to meet health needs, Adequate arrangements @DC, Verbal commit aftercare, Verbal commit med comply, Improved mood/thought Preliminary Discharge Plan Preliminary DC Plan: Home Special Precautions Special Precautions: Suicide Risk Fall Risk: Moderate Initial D/C Plan Home Identified Discharge Needs: F/U with PCP and out patient psychiatrist Currently Utilized Resources Currently Utilized Resources/P: PCP Out patient psychiatry Identified Problems/Hx/Goals Objectives/Short-Term Goals Short Term Goals: Dec. Anxiety/Panic, Dec. Symp. Depression, Medication Stabilization, Monitor Med Effects, No Suicidal/Tejal. ideation, Prevent D eterioration, Promote Coping Skill Short Term Goals in Patient's: Mood stabilization , medication adjustment to decrease anxiety that is limiting what she can do. Interventions/Frequency Staff Interventions/Frequency&: Nursing to provide routine safety checks, medication administration, and adl support. PT/OT eval and treat as indicated. Psychiatry to see three times weekly. SW to see twice weekly. SW and recreational therapy groups as Lydia is willing. 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 Social: Lydia enjoys crocheting, reading, and prays daily. Education: Lydia graduated high school and completed an apprenticeship in small business. Lydia learned the [place] languauge when she came to the [place] Follow-up PCP Out patient psychiatry Community Provider/Family Inpu: Team meeting was held on 10/13/20, database administration associate of treatment plan was completed on 10/14/20. Treatment Plan Explained Patient/Parking Lot Laborer had this treatment plan explained to him/her as indicated by the signature below and has been given the opportunity to ask questions and make suggestions: Date: Patient/Parking Lot Laborer Signature: Status Update Update WEEKLY NOTE/UPDATE: Lydia is averaging eight hours of sleep at night and 25% of meals. She reports an improvement in anxiety and denies thoughts of self harm. She described herself as doing "very well" in comparison to prior hospitalization status. Lydia was initiated on Metformin to decrease blood glucose levels. The Abilify has been increased to 5mg po daily. She is cooperative with cares and is medication compliant. She feels prepared to discharge home on 10/21/20 and Soraida, daughter, is agreeable to this and available to transport. Lydia will have follow up out patient psychiatric appointments at Dr. Levine's office and is aware that she can utilize counseling supports if she desires. Both Lydia and Soraida were involved in team meeting held on this date. DOROTHY GIVENS Oct 19, 2020 14:39
[2020-10-19 15:42] VITALS: BP 143/79
[2020-10-19] MEDS: MIRTAZAPINE 15 MG TABLET PO SCH (21:00)
[2020-10-19] MEDS: LATANOPROST 0.005% OPHTH SOLUTION 2.5ML BOTTLE. OU SCH (21:00)
--- NOTE | 2020-10-19 21:52 | PDOC ---
Exam Note: Nathan Note: Please also refer to the separate dictated note~for this date of service dictated separately.~Patient seen individually. Discussed the patient with Nursing staff reviewed the chart.~Reviewed interim history and current functioning. Reviewed vital signs,~Labs/ Radiology~and current medications noted below. Continue current treatment with the changes noted in the dictated addendum note Assessment: Vital Signs/I&O: Vital Signs Date Time Temp Pulse Resp B/P (MAP) Pulse Ox O2 Delivery O2 Flow Rate FiO2 10/19/20 15:42 97.3 86 18 143/79 (100) 94 Room Air I & O 10/18/20 10/18/20 10/19/20 15:00 23:00 07:00 Intake Total 360 ml 480 ml Balance 360 ml 480 ml Current Medications: Meds: Current Medications Medications (Trade) Dose Ordered Sig/Bebe Route PRN Reason Start Time Stop Time Status Last Admin Dose Admin Diazepam (Valium) 2 mg BID PRN PO ANXIETY 10/10/20 14:30 Duloxetine HCl (Cymbalta) 60 mg DAILY PO 10/11/20 09:00 10/19/20 08:40 Levothyroxine Sodium (Synthroid) 50 mcg DAILYAC PO 10/11/20 07:30 10/10/20 20:48 DC Lisinopril (Prinivil) 10 mg DAILY PO 10/11/20 09:00 10/11/20 08:47 DC Mirtazapine (Remeron) 15 mg QHS PO 10/10/20 21:00 10/19/20 21:00 Sertraline HCl (Zoloft) 150 mg DAILY PO 10/11/20 09:00 10/11/20 08:47 DC Simvastatin (Zocor) 20 mg QHS PO 10/10/20 21:00 10/11/20 08:47 DC 10/10/20 20:47 Latanoprost (Xalatan) 1 drop QHS OU 10/10/20 21:00 10/18/20 20:28 Non-Formulary Medication (Brimonidine Tartrate/Timolol (Combigan Eye Drops)) 1 drop BID EACHEYE 10/10/20 21:00 UNV Non-Formulary Medication (Calcium Carbonate (Tums Ultra Strength)) 470 mg TIDPCHC PRN PO HEARTBURN / GAS 10/10/20 14:30 UNV Non-Formulary Medication (Hydrochlorothiazide (Hydrochlorothiazide Tablet)) 12.5 mg DAILY PO 10/11/20 09:00 UNV Non-Formulary Medication (Omeprazole Magnesium (Prilosec Otc)) 1 tab DAILY PRN PO HEARTBURN / GAS 10/10/20 14:30 UNV Sennosides (Senna) 25.8 mg Q3DAYS PO 10/13/20 09:00 10/11/20 08:47 DC Acetaminophen (Tylenol) 650 mg PRN Q6HRS PRN PO MILD PAIN / TEMP > 100.3'F 10/10/20 14:45 Multi-Ingredient Ointment (Analgesic [place]) 1 lillian PRN QID PRN TP MUSCLE PAIN 10/10/20 14:45 Al Hydroxide/Mg Hydroxide (Mylanta Plus Xs) 15 ml PRN AFTMEALHC PRN PO 2ND CHOICE HEARTBURN/GAS 10/10/20 14:45 Magnesium Hydroxide (Milk Of Magnesia) 2,400 mg PRN QHS PRN PO 1ST CHOICE CONSTIPATION 10/10/20 14:45 10/16/20 21:23 Hydrochlorothiazide (Microzide) 12.5 mg DAILY PO 10/11/20 09:00 10/11/20 08:47 DC Calcium Carbonate/ Glycine (Tums) 500 mg TIDPCHC PRN PO 1ST CHOICE HEARTBURN/GAS 10/10/20 15:00 10/14/20 08:34 Brimonidine Tartrate (Alphagan) 1 drop BID OU 10/10/20 21:00 10/19/20 09:00 Timolol Maleate (Timoptic 0.5% [facility]) 1 drop BID OU 10/10/20 21:00 10/19/20 09:00 Pantoprazole Sodium (Protonix) 40 mg DAILY PRN PO 3RD CHOICE HEARTBURN/GAS 10/10/20 15:00 10/14/20 08:33 Levothyroxine Sodium (Synthroid) 50 mcg DAILYAC PO 10/11/20 06:00 10/15/20 09:01 DC 10/15/20 08:39 Nicotine (Nicoderm Cq 21mg Patch) 1 patch DAILY TD 10/11/20 11:30 10/16/20 18:04 DC Aripiprazole (Abilify) 2.5 mg DAILY PO 10/12/20 09:00 10/13/20 11:48 DC 10/13/20 08:15 Sennosides (Senna) 17.2 mg PRN BID PRN PO 2ND CHOICE CONSTIPATION 10/12/20 20:30 10/12/20 20:39 Aripiprazole (Abilify) 5 mg DAILY PO 10/14/20 09:00 10/19/20 08:40 Levothyroxine Sodium (Synthroid) 50 mcg DAILY06 PO 10/16/20 06:00 10/19/20 05:08 Nicotine (Nicoderm Cq 21mg Patch) 1 patch PRN DAILY PRN TD SMOKING CESSATION 10/16/20 18:15 Magnesium Citrate (Citroma) 296 ml 1X ONCE PO 10/16/20 19:00 10/16/20 19:01 DC 10/16/20 19:25 Psyllium Hydrophilic Mucilloid (Metamucil) 1 pkt DAILY PO 10/18/20 09:00 10/19/20 08:40 Metformin HCl (Glucophage Xr) 500 mg DAILYWBKFT PO 10/19/20 08:00 10/19/20 08:40 Current Medications Medications (Trade) Dose Ordered Sig/Bebe Route PRN Reason Start Time Stop Time Status Last Admin Dose Admin Metformin HCl (Glucophage Xr) 500 mg DAILYWBKFT PO 10/19/20 08:00 10/19/20 08:40 I have reviewed the current psychotropics carefully including drug interactions. Risk benefit ratio favors no change other than as noted in my dictated progress note. Diagnosis: Problems: (1) MDD (major depressive disorder) (2) Major depressive disorder, recurrent episode (3) Anxiety disorder, unspecified CHRISTOPHE SALAS MD Oct 19, 2020 21:51
--- NOTE | 2020-10-19 22:55 | NUR ---
Nursing Note Pt talks at length about [place] and [place], states how nice it is there. Reminisces about her times there, the mountains, and proximity to other countries. Tells me how all the countries in [place] blend together regarding landscape. Seems to be in good spirits pleasant and cooperative. Is alert and oriented this pm. Denies complaints.
[2020-10-20] MEDS: LEVOTHYROXINE 50 MCG TABLET PO SCH (06:00)
[2020-10-20 06:05] VITALS: BP 137/80
[2020-10-20] MEDS: TIMOLOL 0.5% OPHTH SOLUTION 5ML BOTTLE. OU SCH ×2 (08:03→20:34)
[2020-10-20] MEDS: BRIMONIDINE 0.2% OPHTH SOLUTION 5ML BOTTLE. OU SCH ×2 (08:03→20:34)
[2020-10-20] MEDS: PSYLLIUM SEED (WITH SUGAR) PACKET. PO SCH (08:25)
[2020-10-20] MEDS: ARIPiprazole 5 MG TABLET PO SCH (08:25)
[2020-10-20] MEDS: metFORMIN XR 500 MG TAB.ER.24H PO SCH (08:25)
[2020-10-20] MEDS: DULoxetine HCL 60 MG CAPSULE.DR PO SCH (08:25)
--- NOTE | 2020-10-20 09:30 | NUR ---
[facility] Social Work Discharge Planning Form Patient Name JACK WITT Admit Date: 10/10/2020 DISCHARGE PLAN Discharge Destination: Home Care Assessment: N/A Transportation: Soraida, daughter, will transport on 10/21/20, milk pickup driver TBD. Special Instructions/Notes: Jack needs Abilify and Metformin called into [facility] at [phone]. She has all other medications at home. DISCHARGE TO HOME: Address: [address] [place] [address] Responsible Democrat: Jack Witt-self Pharmacy: [facility], phone number [phone] Psychiatrist/Mental Health Follow Up: Jack has a follow up appointment with [facility] at Dr. Levine's office on 11/10/[address] Levine's phone number is [phone], fax number is [phone]. Primary Care Follow Up: Jack has an appointment with GIFT SHOP MANAGER Marcy Stinson at Dr. El's office on 11/04/20 at 10:30am. Dr. El's phone number is [phone] and fax number is [phone].
--- NOTE | 2020-10-20 09:59 | NUR ---
Pt appropriate and cooperative during shift. She is med compliant with medications taken whole but split. Pt is A&Ox4, absent of SI/HI/VH/AH/delusions/pain at this time. She is appropriate with her interactions with others and is able to make her needs known. Plan of care continues, will pass to next shift.
--- NOTE | 2020-10-20 15:14 | NUR ---
DANK met with Lydia to complete safety plan worksheet. Original placed on medical chart and copy placed in d/c paperwork to be provided to Lydia upon discharge. Lydia's daughter, Soraida, will pick her up on 10/21/20 at 11am to transport to home.
[2020-10-20 16:09] VITALS: BP 131/81
[2020-10-20] MEDS: MIRTAZAPINE 15 MG TABLET PO SCH (20:34)
[2020-10-20] MEDS: LATANOPROST 0.005% OPHTH SOLUTION 2.5ML BOTTLE. OU SCH (20:34)
--- NOTE | 2020-10-20 22:38 | PDOC ---
Exam Note: Nathan Note: Please also refer to the separate dictated note~for this date of service dictated separately.~Patient seen individually. Discussed the patient with Nursing staff reviewed the chart.~Reviewed interim history and current functioning. Reviewed vital signs,~Labs/ Radiology~and current medications noted below. Continue current treatment with the changes noted in the dictated addendum note Assessment: Vital Signs/I&O: Vital Signs Date Time Temp Pulse Resp B/P (MAP) Pulse Ox O2 Delivery O2 Flow Rate FiO2 10/20/20 16:09 97.8 76 18 131/81 (98) 93 Room Air I & O 10/19/20 10/19/20 10/20/20 15:00 23:00 07:00 Intake Total 480 ml 480 ml Balance 480 ml 480 ml Current Medications: Meds: Current Medications Medications (Trade) Dose Ordered Sig/Bebe Route PRN Reason Start Time Stop Time Status Last Admin Dose Admin Diazepam (Valium) 2 mg BID PRN PO ANXIETY 10/10/20 14:30 Duloxetine HCl (Cymbalta) 60 mg DAILY PO 10/11/20 09:00 10/20/20 08:25 Levothyroxine Sodium (Synthroid) 50 mcg DAILYAC PO 10/11/20 07:30 10/10/20 20:48 DC Lisinopril (Prinivil) 10 mg DAILY PO 10/11/20 09:00 10/11/20 08:47 DC Mirtazapine (Remeron) 15 mg QHS PO 10/10/20 21:00 10/20/20 20:34 Sertraline HCl (Zoloft) 150 mg DAILY PO 10/11/20 09:00 10/11/20 08:47 DC Simvastatin (Zocor) 20 mg QHS PO 10/10/20 21:00 10/11/20 08:47 DC 10/10/20 20:47 Latanoprost (Xalatan) 1 drop QHS OU 10/10/20 21:00 10/20/20 20:34 Non-Formulary Medication (Brimonidine Tartrate/Timolol (Combigan Eye Drops)) 1 drop BID EACHEYE 10/10/20 21:00 UNV Non-Formulary Medication (Calcium Carbonate (Tums Ultra Strength)) 470 mg TIDPCHC PRN PO HEARTBURN / GAS 10/10/20 14:30 UNV Non-Formulary Medication (Hydrochlorothiazide (Hydrochlorothiazide Tablet)) 12.5 mg DAILY PO 10/11/20 09:00 UNV Non-Formulary Medication (Omeprazole Magnesium (Prilosec Otc)) 1 tab DAILY PRN PO HEARTBURN / GAS 10/10/20 14:30 UNV Sennosides (Senna) 25.8 mg Q3DAYS PO 10/13/20 09:00 10/11/20 08:47 DC Acetaminophen (Tylenol) 650 mg PRN Q6HRS PRN PO MILD PAIN / TEMP > 100.3'F 10/10/20 14:45 Multi-Ingredient Ointment (Analgesic [place]) 1 lillian PRN QID PRN TP MUSCLE PAIN 10/10/20 14:45 Al Hydroxide/Mg Hydroxide (Mylanta Plus Xs) 15 ml PRN AFTMEALHC PRN PO 2ND CHOICE HEARTBURN/GAS 10/10/20 14:45 Magnesium Hydroxide (Milk Of Magnesia) 2,400 mg PRN QHS PRN PO 1ST CHOICE CONSTIPATION 10/10/20 14:45 10/16/20 21:23 Hydrochlorothiazide (Microzide) 12.5 mg DAILY PO 10/11/20 09:00 10/11/20 08:47 DC Calcium Carbonate/ Glycine (Tums) 500 mg TIDPCHC PRN PO 1ST CHOICE HEARTBURN/GAS 10/10/20 15:00 10/14/20 08:34 Brimonidine Tartrate (Alphagan) 1 drop BID OU 10/10/20 21:00 10/20/20 20:34 Timolol Maleate (Timoptic 0.5% [facility]) 1 drop BID OU 10/10/20 21:00 10/20/20 20:34 Pantoprazole Sodium (Protonix) 40 mg DAILY PRN PO 3RD CHOICE HEARTBURN/GAS 10/10/20 15:00 10/14/20 08:33 Levothyroxine Sodium (Synthroid) 50 mcg DAILYAC PO 10/11/20 06:00 10/15/20 09:01 DC 10/15/20 08:39 Nicotine (Nicoderm Cq 21mg Patch) 1 patch DAILY TD 10/11/20 11:30 10/16/20 18:04 DC Aripiprazole (Abilify) 2.5 mg DAILY PO 10/12/20 09:00 10/13/20 11:48 DC 10/13/20 08:15 Sennosides (Senna) 17.2 mg PRN BID PRN PO 2ND CHOICE CONSTIPATION 10/12/20 20:30 10/12/20 20:39 Aripiprazole (Abilify) 5 mg DAILY PO 10/14/20 09:00 10/20/20 08:25 Levothyroxine Sodium (Synthroid) 50 mcg DAILY06 PO 10/16/20 06:00 10/20/20 06:00 Nicotine (Nicoderm Cq 21mg Patch) 1 patch PRN DAILY PRN TD SMOKING CESSATION 10/16/20 18:15 Magnesium Citrate (Citroma) 296 ml 1X ONCE PO 10/16/20 19:00 10/16/20 19:01 DC 10/16/20 19:25 Psyllium Hydrophilic Mucilloid (Metamucil) 1 pkt DAILY PO 10/18/20 09:00 10/20/20 08:25 Metformin HCl (Glucophage Xr) 500 mg DAILYWBKFT PO 10/19/20 08:00 10/20/20 08:25 I have reviewed the current psychotropics carefully including drug interactions. Risk benefit ratio favors no change other than as noted in my dictated progress note. Diagnosis: Problems: (1) MDD (major depressive disorder) (2) Major depressive disorder, recurrent episode (3) Anxiety disorder, unspecified CHRISTOPHE SALAS MD Oct 20, 2020 22:38
--- NOTE | 2020-10-20 23:37 | NUR ---
Nursing Note Pt had a significant altercation with staff at shift change. Pt asking for her martina bag, wants to do some martina to calm her nerves she was told to wait because an admit had been scheduled to arrive at 7 pm, report was taking place, and after that would be passing meds and assessing patients that she could not be left unattended with sharp objects. Pt verbalized understanding, but then spoke with daughter telling her we told the patient to go to her room and shut up. She also spoke with Dr. Seaman and the nursing insurance licensing supervisor that the aid was telling her to shut up. This was not true. Pt was allowed to have her martina, but after admits and assessments were completed etc. Pt is generally in a foul mood and is angry. I told her the rationale again, but she insisted that the tech told her to go to her room and shut up. Pt med compliant and cooperative with assessment.
[2020-10-21] MEDS ORDERED: METF-658 PO (00:12)
[2020-10-21] MEDS ORDERED: NICO1PAT21 TD (00:14)
[2020-10-21] MEDS ORDERED: ARIP5TAB13 PO (00:15)
[2020-10-21] MEDS ORDERED: PSYL0.4C2 PO (00:17)
[2020-10-21 06:06] VITALS: BP 155/82
[2020-10-21] MEDS: LEVOTHYROXINE 50 MCG TABLET PO SCH (06:26)
[2020-10-21] MEDS: DULoxetine HCL 60 MG CAPSULE.DR PO SCH (08:01)
[2020-10-21] MEDS: PSYLLIUM SEED (WITH SUGAR) PACKET. PO SCH (08:01)
[2020-10-21] MEDS: metFORMIN XR 500 MG TAB.ER.24H PO SCH (08:01)
[2020-10-21] MEDS: ARIPiprazole 5 MG TABLET PO SCH (08:01)
[2020-10-21] MEDS: TIMOLOL 0.5% OPHTH SOLUTION 5ML BOTTLE. OU SCH (09:00)
[2020-10-21] MEDS: BRIMONIDINE 0.2% OPHTH SOLUTION 5ML BOTTLE. OU SCH (09:00)
--- NOTE | 2020-10-21 09:13 | NUR ---
Pt appropriate and cooperative during shift. She is med compliant with medications taken whole. Pt is alert and oriented, absent of SI/HI/VH/AH/delusions/pain at this time. She is aware that she is pending d/c today and appears optimistic. Plan of care continues, preparing for d/c
--- NOTE | 2020-10-21 09:39 | NUR ---
Contacted [facility] ([phone]) and spoke with Pharmacist Delmis. Called in [facility] following medications: Metformin 500 mg PO daily, Aripiprazole 5 mg PO daily. Each prescription 30 day supply no refills.
--- NOTE | 2020-10-21 11:58 | NUR ---
Tobacco Discharge Note [facility] Tobacco Hotline called with patient prior to discharge, Pt declined Tobacco cessation medication listed with current medications for discharge. YES Transition Record was faxed to follow-up provider with the following elements: Reason for admission, procedures, tests, principal diagnosis, pending studies, patient instructions, 29/08 contact information for unit, phone number to obtain pending test results, plan for follow-up care, physician follow-up, advanced directive information, and medication list with dose, duration and instructions. This information was included in the following documents: History and physical, lab results, study results, progress notes, social work planning form, DC instruction form, patient visit summary, and medication reconciliation form. Date & time record faxed: 10/21/20 [id number] and [phone] Record faxed to: Dr Levine (f [phone]) and Dr El (f [phone]) Record discussed with/ report given to: Discussed with family at time of d/c
--- NOTE | 2020-10-21 22:29 | PDOC ---
Exam Note: Nathan Note: This note is a late entry for 10/19/2020 covers elements not covered in my initial note. Subjective: The patient was reviewed at treatment team meeting individually in the morning on 10/19/2020 with Danette Young, Ailin Simons (delinquency prevention social worker), Deb, activity therapy and Brina MCCANN, discussed and reviewed the chart. Her daughter Soraida also attended the meeting. She attended one group over the past one week. Discussed the patients diagnoses, progress, psychotropic medications and side effects. The patient also attended the treatment team meeting. She states she is subjectively feeling much better. Depression is better. Anxiety is much improved. We discussed her psy chotropics, drug interactions, risk-benefit ratio at length and answered daughters many questions. Also discussed with Mariella MCCANN in the evening. The patient slept 8 hours previous night. Review of Systems: No CV, , pulmonary, eye, ENT system symptoms on review. Mental Status Exam: The patient is reasonably oriented. She is verbal and interactive. Speech coherent. Abstraction fair. Computation impaired. Language function intact. Mood and affect less anxious. No suicidal or homicidal ideation. Laboratory Data: Reviewed. Impression: Major depressive disorder, recurrent, severe. Anxiety disorder unspecified. Plan: Continue current psychotropics. Transition to outpatient treatment Monday. Assessment: Vital Signs/I&O: Vital Signs Date Time Temp Pulse Resp B/P (MAP) Pulse Ox O2 Delivery O2 Flow Rate FiO2 10/21/20 06:06 98.2 76 16 155/82 (106) 90 Room Air I & O 10/20/20 10/20/20 10/21/20 15:00 23:00 07:00 Intake Total 240 ml 360 ml Balance 240 ml 360 ml Current Medications: Meds: Current Medications Medications (Trade) Dose Ordered Sig/Bebe Route PRN Reason Start Time Stop Time Status Last Admin Dose Admin Diazepam (Valium) 2 mg BID PRN PO ANXIETY 10/10/20 14:30 10/21/20 12:00 DC Duloxetine HCl (Cymbalta) 60 mg DAILY PO 10/11/20 09:00 10/21/20 12:00 DC 10/21/20 08:01 Levothyroxine Sodium (Synthroid) 50 mcg DAILYAC PO 10/11/20 07:30 10/10/20 20:48 DC Lisinopril (Prinivil) 10 mg DAILY PO 10/11/20 09:00 10/11/20 08:47 DC Mirtazapine (Remeron) 15 mg QHS PO 10/10/20 21:00 10/21/20 12:00 DC 10/20/20 20:34 Sertraline HCl (Zoloft) 150 mg DAILY PO 10/11/20 09:00 10/11/20 08:47 DC Simvastatin (Zocor) 20 mg QHS PO 10/10/20 21:00 10/11/20 08:47 DC 10/10/20 20:47 Latanoprost (Xalatan) 1 drop QHS OU 10/10/20 21:00 10/21/20 12:00 DC 10/20/20 20:34 Non-Formulary Medication (Brimonidine Tartrate/Timolol (Combigan Eye Drops)) 1 drop BID EACHEYE 10/10/20 21:00 UNV Non-Formulary Medication (Calcium Carbonate (Tums Ultra Strength)) 470 mg TIDPCHC PRN PO HEARTBURN / GAS 10/10/20 14:30 UNV Non-Formulary Medication (Hydrochlorothiazide (Hydrochlorothiazide Tablet)) 12.5 mg DAILY PO 10/11/20 09:00 UNV Non-Formulary Medication (Omeprazole Magnesium (Prilosec Otc)) 1 tab DAILY PRN PO HEARTBURN / GAS 10/10/20 14:30 UNV Sennosides (Senna) 25.8 mg Q3DAYS PO 10/13/20 09:00 10/11/20 08:47 DC Acetaminophen (Tylenol) 650 mg PRN Q6HRS PRN PO MILD PAIN / TEMP > 100.3'F 10/10/20 14:45 10/21/20 12:00 DC Multi-Ingredient Ointment (Analgesic [place]) 1 lillian PRN QID PRN TP MUSCLE PAIN 10/10/20 14:45 10/21/20 12:00 DC Al Hydroxide/Mg Hydroxide (Mylanta Plus Xs) 15 ml PRN AFTMEALHC PRN PO 2ND CHOICE HEARTBURN/GAS 10/10/20 14:45 10/21/20 12:00 DC Magnesium Hydroxide (Milk Of Magnesia) 2,400 mg PRN QHS PRN PO 1ST CHOICE CONSTIPATION 10/10/20 14:45 10/21/20 12:00 DC 10/16/20 21:23 Hydrochlorothiazide (Microzide) 12.5 mg DAILY PO 10/11/20 09:00 10/11/20 08:47 DC Calcium Carbonate/ Glycine (Tums) 500 mg TIDPCHC PRN PO 1ST CHOICE HEARTBURN/GAS 10/10/20 15:00 10/21/20 12:00 DC 10/14/20 08:34 Brimonidine Tartrate (Alphagan) 1 drop BID OU 10/10/20 21:00 10/21/20 12:00 DC 10/21/20 09:00 Timolol Maleate (Timoptic 0.5% Oph) 1 drop BID OU 10/10/20 21:00 10/21/20 12:00 DC 10/21/20 09:00 Pantoprazole Sodium (Protonix) 40 mg DAILY PRN PO 3RD CHOICE HEARTBURN/GAS 10/10/20 15:00 10/21/20 12:00 DC 10/14/20 08:33 Levothyroxine Sodium (Synthroid) 50 mcg DAILYAC PO 10/11/20 06:00 10/15/20 09:01 DC 10/15/20 08:39 Nicotine (Nicoderm Cq 21mg Patch) 1 patch DAILY TD 10/11/20 11:30 10/16/20 18:04 DC Aripiprazole (Abilify) 2.5 mg DAILY PO 10/12/20 09:00 10/13/20 11:48 DC 10/13/20 08:15 Sennosides (Senna) 17.2 mg PRN BID PRN PO 2ND CHOICE CONSTIPATION 10/12/20 20:30 10/21/20 12:00 DC 10/12/20 20:39 Aripiprazole (Abilify) 5 mg DAILY PO 10/14/20 09:00 10/21/20 12:00 DC 10/21/20 08:01 Levothyroxine Sodium (Synthroid) 50 mcg DAILY06 PO 10/16/20 06:00 10/21/20 12:00 DC 10/21/20 06:26 Nicotine (Nicoderm Cq 21mg Patch) 1 patch PRN DAILY PRN TD SMOKING CESSATION 10/16/20 18:15 10/21/20 12:00 DC Magnesium Citrate (Citroma) 296 ml 1X ONCE PO 10/16/20 19:00 10/16/20 19:01 DC 10/16/20 19:25 Psyllium Hydrophilic Mucilloid (Metamucil) 1 pkt DAILY PO 10/18/20 09:00 10/21/20 12:00 DC 10/21/20 08:01 Metformin HCl (Glucophage Xr) 500 mg DAILYWBKFT PO 10/19/20 08:00 10/21/20 12:00 DC 10/21/20 08:01 I have reviewed the current psychotropics carefully including drug interactions. Risk benefit ratio favors no change other than as noted in my dictated progress note. Diagnosis: Problems: (1) MDD (major depressive disorder) (2) Major depressive disorder, recurrent episode (3) Anxiety disorder, unspecified CHRISTOPHE SALAS MD Oct 21, 2020 22:29
--- NOTE | 2020-10-22 06:46 | PDOC ---
Exam Note: Nathan Note: This note is a late entry for 10/20/2020 covers elements not covered in my initial note. Subjective: The patient was seen individually in the evening of 10/20/2020 with Mariella MCCANN, discussed and reviewed the chart. The patient slept 6-1/2 hours previous night. Overall she has been busy active with [employer]. She had a problem interacting with one of the nursing aids this evening. She is quite distressed with this and we addressed at some length. She would still like to be discharged tomorrow to outpatient treatment. Review of Systems: No CV, , pulmonary, eye, ENT system symptoms on review. Mental Status Exam: The patient is reasonably oriented. Speech coherent. Abstraction fair. Computation impaired. Language function intact. Mood and affect improved, less anxious. Laboratory Data: Reviewed. Impression: Major depressive disorder, recurrent, severe. Anxiety disorder unspecified. Plan: Continue current psychotropics. Assessment: Vital Signs/I&O: Vital Signs Date Time Temp Pulse Resp B/P (MAP) Pulse Ox O2 Delivery O2 Flow Rate FiO2 10/21/20 06:06 98.2 76 16 155/82 (106) 90 Room Air I & O 10/21/20 10/21/20 10/22/20 15:00 23:00 07:00 Intake Total 250 ml Balance 250 ml Current Medications: Meds: Current Medications Medications (Trade) Dose Ordered Sig/Bebe Route PRN Reason Start Time Stop Time Status Last Admin Dose Admin Diazepam (Valium) 2 mg BID PRN PO ANXIETY 10/10/20 14:30 10/21/20 12:00 DC Duloxetine HCl (Cymbalta) 60 mg DAILY PO 10/11/20 09:00 10/21/20 12:00 DC 10/21/20 08:01 Levothyroxine Sodium (Synthroid) 50 mcg DAILYAC PO 10/11/20 07:30 10/10/20 20:48 DC Lisinopril (Prinivil) 10 mg DAILY PO 10/11/20 09:00 10/11/20 08:47 DC Mirtazapine (Remeron) 15 mg QHS PO 10/10/20 21:00 10/21/20 12:00 DC 10/20/20 20:34 Sertraline HCl (Zoloft) 150 mg DAILY PO 10/11/20 09:00 10/11/20 08:47 DC Simvastatin (Zocor) 20 mg QHS PO 10/10/20 21:00 10/11/20 08:47 DC 10/10/20 20:47 Latanoprost (Xalatan) 1 drop QHS OU 10/10/20 21:00 10/21/20 12:00 DC 10/20/20 20:34 Non-Formulary Medication (Brimonidine Tartrate/Timolol (Combigan Eye Drops)) 1 drop BID EACHEYE 10/10/20 21:00 UNV Non-Formulary Medication (Calcium Carbonate (Tums Ultra Strength)) 470 mg TIDPCHC PRN PO HEARTBURN / GAS 10/10/20 14:30 UNV Non-Formulary Medication (Hydrochlorothiazide (Hydrochlorothiazide Tablet)) 12.5 mg DAILY PO 10/11/20 09:00 UNV Non-Formulary Medication (Omeprazole Magnesium (Prilosec Otc)) 1 tab DAILY PRN PO HEARTBURN / GAS 10/10/20 14:30 UNV Sennosides (Senna) 25.8 mg Q3DAYS PO 10/13/20 09:00 10/11/20 08:47 DC Acetaminophen (Tylenol) 650 mg PRN Q6HRS PRN PO MILD PAIN / TEMP > 100.3'F 10/10/20 14:45 10/21/20 12:00 DC Multi-Ingredient Ointment (Analgesic [facility]) 1 lillian PRN QID PRN TP MUSCLE PAIN 10/10/20 14:45 10/21/20 12:00 DC Al Hydroxide/Mg Hydroxide (Mylanta Plus Xs) 15 ml PRN AFTMEALHC PRN PO 2ND CHOICE HEARTBURN/GAS 10/10/20 14:45 10/21/20 12:00 DC Magnesium Hydroxide (Milk Of Magnesia) 2,400 mg PRN QHS PRN PO 1ST CHOICE CONSTIPATION 10/10/20 14:45 10/21/20 12:00 DC 10/16/20 21:23 Hydrochlorothiazide (Microzide) 12.5 mg DAILY PO 10/11/20 09:00 10/11/20 08:47 DC Calcium Carbonate/ Glycine (Tums) 500 mg TIDPCHC PRN PO 1ST CHOICE HEARTBURN/GAS 10/10/20 15:00 10/21/20 12:00 DC 10/14/20 08:34 Brimonidine Tartrate (Alphagan) 1 drop BID OU 10/10/20 21:00 10/21/20 12:00 DC 10/21/20 09:00 Timolol Maleate (Timoptic 0.5% Ophth) 1 drop BID OU 10/10/20 21:00 10/21/20 12:00 DC 10/21/20 09:00 Pantoprazole Sodium (Protonix) 40 mg DAILY PRN PO 3RD CHOICE HEARTBURN/GAS 10/10/20 15:00 10/21/20 12:00 DC 10/14/20 08:33 Levothyroxine Sodium (Synthroid) 50 mcg DAILYAC PO 10/11/20 06:00 10/15/20 09:01 DC 10/15/20 08:39 Nicotine (Nicoderm Cq 21mg Patch) 1 patch DAILY TD 10/11/20 11:30 10/16/20 18:04 DC Aripiprazole (Abilify) 2.5 mg DAILY PO 10/12/20 09:00 10/13/20 11:48 DC 10/13/20 08:15 Sennosides (Senna) 17.2 mg PRN BID PRN PO 2ND CHOICE CONSTIPATION 10/12/20 20:30 10/21/20 12:00 DC 10/12/20 20:39 Aripiprazole (Abilify) 5 mg DAILY PO 10/14/20 09:00 10/21/20 12:00 DC 10/21/20 08:01 Levothyroxine Sodium (Synthroid) 50 mcg DAILY06 PO 10/16/20 06:00 10/21/20 12:00 DC 10/21/20 06:26 Nicotine (Nicoderm Cq 21mg Patch) 1 patch PRN DAILY PRN TD SMOKING CESSATION 10/16/20 18:15 10/21/20 12:00 DC Magnesium Citrate (Citroma) 296 ml 1X ONCE PO 10/16/20 19:00 10/16/20 19:01 DC 10/16/20 19:25 Psyllium Hydrophilic Mucilloid (Metamucil) 1 pkt DAILY PO 10/18/20 09:00 10/21/20 12:00 DC 10/21/20 08:01 Metformin HCl (Glucophage Xr) 500 mg DAILYWBKFT PO 10/19/20 08:00 10/21/20 12:00 DC 10/21/20 08:01 I have reviewed the current psychotropics carefully including drug interactions. Risk benefit ratio favors no change other than as noted in my dictated progress note. Diagnosis: Problems: (1) MDD (major depressive disorder) (2) Major depressive disorder, recurrent episode (3) Anxiety disorder, unspecified CHRISTOPHE SALAS MD Oct 22, 2020 06:46
--- NOTE | 2020-10-22 21:40 | DS ---
DATE OF DISCHARGE: 10/21/2020 This is a late entry, covers elements not covered in my initial note of 10/21/2020. REASON FOR ADMISSION: Please refer to the admission history for details. Briefly, the patient is a 75-year-old female referred to us by her primary care physician and psychiatrist, on account of worsening symptoms of depression. She was living at home, having poor intake, losing weight, telling family that she plans on starving herself to . She had increased anxiety, was anxious, hopeless, helpless, worthless. She had failed outpatient psychiatric intervention, resulting in this referral. SIGNIFICANT FINDINGS AND CLINICAL COURSE: Following admission, the patient was seen daily individually by myself from a psychiatric standpoint, medical followup, Dr. Isaacs/Dr. Tsai. The patient was quite anxious, apprehensive, depressed, hopeless, helpless, worthless. Adjustments were made in her psychotropics and she seemed to respond to a combination of Cymbalta 60 mg a day augmented with Abilify 5 mg daily, Remeron 15 mg at bedtime to help with her insomnia, and she was on Valium p.r.n. Gradually mood appeared to improve. She was much brighter, said she had not felt this well in the past 4 years. REVIEW OF SYSTEMS: Prior to discharge on 10/21/2020, no CV, , pulmonary, eye, ENT system symptoms on review. MENTAL STATUS EXAMINATION: Reasonably oriented. Speech coherent. Abstraction fair. Computation impaired. Language function intact. Mood and affect, much improved. No suicidal or homicidal ideation. LABORATORY DATA: Reviewed. FINAL DIAGNOSES: Major depressive disorder, recurrent, in partial remission; anxiety disorder, unspecified. Rest unchanged from admission. DISCHARGE MEDICATIONS: Please refer to the MRAD. DISCHARGE INSTRUCTIONS: Outpatient psychiatric and medical followup as arranged prior to discharge. Time for discharge day management greater than [address]: Sue TID: [id number]
== END 2020-10-21 11:59 | disposition home or self-care (01) | DRG 885 ==
LOC: GEROPSY 13:10
PROVIDERS: ADMIT Psychiatry & Neurology Psychiatry; ATTEND Psychiatry & Neurology Psychiatry
DX: F33.2 Major depressive disorder, recurrent severe without psychotic features (principal); R64 Cachexia; R45.851 Suicidal ideations; Z68.1 Body mass index [BMI] 19.9 or less, adult; E03.9 Hypothyroidism, unspecified; E78.5 Hyperlipidemia, unspecified; F17.200 Nicotine dependence, unspecified, uncomplicated; F22 Delusional disorders; F41.9 Anxiety disorder, unspecified; I10 Essential (primary) hypertension; J43.9 Emphysema, unspecified; K59.00 Constipation, unspecified; M19.90 Unspecified osteoarthritis, unspecified site; M81.0 Age-related osteoporosis without current pathological fracture; Z79.899 Other long term (current) drug therapy; F41.8 Other specified anxiety disorders; K21.9 Gastro-esophageal reflux disease without esophagitis; K59.09 Other constipation; Z88.0 Allergy status to penicillin; Z88.8 Allergy status to other drugs, medicaments and biological substances; Z87.898 Personal history of other specified conditions
CPT/HCPCS: 36415; 70450; 80053; 80061; 81001; 82306; 82607; 82947; 83036; 83540; 83550; 83735; 84436; 84443; 84480; 85025; 85379; 86592; 93005; 99406; U0003; 97530